=== PATIENT | female | born 1980 | race Caucasian/White ===

== ENCOUNTER → 2019-11-11 | Outpatient (CLI) | payer OTHER ==
[2019-11-11 12:51] VITALS: BP 126/56; PULSE 70; RESP 14; TEMP 98.1
--- NOTE | 2019-11-11 12:56 | P.PAINCN ---
History of Present Illness - Reason for Consult Consult date: 11/11/19 - History of Present Illness This is a 39 years old female with a chronic history of severe neck pain, started more than 6 years ago, she denies any initiating event, the pain is constant and increases with any activity, she reported that she had the interventional pain management procedures done in the past which helped her neck pain is significantly, but she was not able to continue with the treatment, because she lost her insurance, patient currently on Motrin 800 mg every 8 hours and baclofen 10 3 times a day when necessary, he continued to have severe neck pain with occasional numbness and tingling in the upper extremities, also patient complaining of on and off episode of headache, patient denies any motor or sensory deficit she denies any fever or night sweats she denies any change in the bowel movement or urination, 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 History of Any Multi-Drug Resistant Organisms: None Reported Past Surgical History: No Surgical Hx Reported Additional Past Surgical History / Comment(s): HAS HAD PRIOR INJECTIONS Past Anesthesia/Blood Transfusion Reactions: No Reported Reaction Past Psychological History: No Psychological Hx Reported Smoking Status: Never smoker Past Alcohol Use History: None Reported Past Drug Use History: None Reported - Past Family History Mother Family Medical History: Cancer Medications and Allergies Home Medications Medication Instructions Recorded Confirmed Type Baclofen [Lioresal] 10 mg PO TID 11/06/19 11/06/19 History Ibuprofen [Motrin] 800 mg PO Q8H PRN 11/06/19 11/06/19 History Allergies Allergy/AdvReac Type Severity Reaction Status Date / Time No Known Allergies Allergy Verified 11/06/19 15:32 Physical Exam Vitals: Vital Signs Temp Pulse Resp BP Pulse Ox 11/11/19 12:45 98.1 F 70 14 126/56 92 L Physical Examinations : -Constitutiona : Cooperative , not in acute distress . -HEENT : nech : supple , no Lymphadenopathy , normal thyroid size . : eyes : no ptosis , no icterus, no photophobia . : ENT : normal of hearing , normal oropharynx , no Thrush . - Respiratory : Chest clear to auscultations Bilaterally , no wheezing , no Rhonchi . - Cardiovascula : regular rate and rhythem , S1 , S2 , no S3 , no S4. - Gastrointestina : abdomen soft no tenderness , bowel sounds , no organomegally . - Genitourinary : Defferred . - neurologic : Cranial nerve II to XII intact , no focal neurological deffecit . -psychatric : alert , oriented X 3 , appropriate affect , intact judgment and insight . -Lymphatic : no Lymphadenopathy . - musculoskeltal : Cervical Spine motor stregnth in the deltoid and biceps, normal right side , normal Left side motor stregnth biceps and the wrist extensors normal right side ,normal left side . motor stregnth in the triceps muscle . normal Right side , normal Left side deep tendon reflexes normal at the biceps , normal at Brachioradialis , normal at triceps. cervical facet loading test= Positive Bilaterally Spurling test= positive bilaterally. Neck distraction test= positive bilaterally. Alecia sign= positive bilaterally. Lumber spine moter stegnth lower extremities ,thigh and legs 5/5 Right side , 5/5 Left side Results Comments: MRI of the cervical spine done in 2013= 45 cervical herniated disc Assessment and Plan Plan: Assessment and plan=1-cervical herniated disc disease. 2-cervical spondylosis with cervical facet arthropathy. Patient had MRI of the cervical spine done in 2013 we don't have any new diagnostic study, we will order a new MRI of the cervical spine Plan we will see the patient in the pain clinic in 2 weeks, patient could benefit from amitriptyline 10 mg daily at bedtime, to help her to go to sleep, and also it will be adjuvant help with the pain Time with Patient: Greater than 30 PQRS Measure Charge Sheet Measure #130: Documentation of Current Meds in Medical Chart: Patient's medications documented in chart Measure #226: Tobacco Use: Screen & Cessation Intervention: Pt not a tobacco user Measure #111: Pneumonia Vaccination: Pneumococcal vaccine NOT administered or previously given Measure #47: Advance Care Plan: Advance care planning discussed & documented, pt chose/unable to give Measure #412: Opioid Treatment Agreement: No documentation of signed opioid treatment agreement Measure #408: Opioid Therapy Follow-up Evaluation: Patient had NO f/u eval minimum every 3 months during opioid therapy Measure #317: Preventitive Care & Scrn High Bld Press & F/U: Normal blood pressure, f/u not required Measure #128: Body Mass Index (BMI) Screening & Follow-up: BMI documented ABOVE normal parameters - f/u documented Measure #131: Pain Assessment & Follow-up: Pain positive & plan documented, Follow-up scheduled Measure #431: Unhealthy Alcohol Use Preventative Care & Scrn: Patient not identified as an unhealthy alcohol user PQRS Narrative: Blood Pressure 126/56 Pain Intensity [Neck] 7 Scale Used Numeric (1 - 10) Hx Alcohol Use (MH) No Home Medications: Ambulatory Orders Baclofen [Lioresal] 10 mg PO TID 11/06/19 Ibuprofen [Motrin] 800 mg PO Q8H PRN 11/06/19
== END | disposition home or self-care (01) ==
LOC: PNWHC3 11:58
PROVIDERS: ATTEND Specialist
DX: M47.812 Spondylosis without myelopathy or radiculopathy, cervical region (principal); M46.92 Unspecified inflammatory spondylopathy, cervical region; M50.20 Other cervical disc displacement, unspecified cervical region; Z79.891 Long term (current) use of opiate analgesic; Z79.899 Other long term (current) drug therapy
CPT/HCPCS: 99211

== ENCOUNTER → 2020-06-10 | Outpatient (CLI) | payer OTHER ==
[2020-06-10 17:25] VITALS: BP 109/60; PULSE 65; RESP 16; TEMP 98.2; BMI 41.4
--- NOTE | 2020-06-10 17:41 | P.HPBAR ---
Bariatric H&P - History & Physicial H&P Date: 06/10/20 History & Physicial: Visit/CC: Initial Patient initial contact: Initial weight: 107.757 kg Initial weight in pounds: 237.56 Height: 5 ft 3.5 in Initial BMI: 41.4 Last weight: Current weight: 107.757 kg Current weight in pounds: 237.56 Current BMI: 41.4 [place] body weight (based on NIH guidelines): 53.297 kg Excess body weight loss: 0.0% The patient is a 40 year-old F who presents for Bariatric Assessment. DATE OF SERVICE: 06/10/2020 REASON FOR CONSULTATION: Initial bariatric evaluation. HISTORY OF PRESENT ILLNESS: Lizbeth Gill is a 40-year-old female who comes with lifelong morbid obesity. She is looking into the gastric bypass. She has a food and exercise journal. Highest weight is 260 pounds, BMI 45.4. She lost weight on Adipex of 20 pounds in 6 months. Her mother, sister, grandmother has obesity. Her grandmother had bariatric surgery. She has gastroesophageal reflux disease with pizza and red foods. She has food allergies with red dye. She has moderate constipation every week and has been like that as a child. She drinks coffee and clover makes her have a bowel movement. She denies deep venous thromboses in herself or family. No stomach or esophageal cancer. Her mother had uterine cancer. No reports of dysphagia. No current diabetes. She snores but denies any recent check for sleep apnea. She has osteoarthritis of the lower back pain, and has hip pain. She denies knee pain. She has feet and ankle pain for severe pain from arthritis. No Crohns disease or colitis. She denies taking medications for hypertension. She presents to me first time in consultation for management of morbid obesity. At height of 5 feet 3.5 inches, her ideal body weight is 140 pounds. Highest weight is 260 pounds, BMI 45.4. She comes in 237 pounds. Her body mass index is 41.4. She is 97 pounds overweight. PAST MEDICAL HISTORY: 1. Morbid obesity due to excess calories 2. Body mass index of 45.4 initial 3. Gastroesophageal reflux disease 4. Obstructive sleep apnea 5. Chronic constipation 6. 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 Spine injection HOME MEDICATIONS: Home Medications Medication Instructions Recorded Confirmed Baclofen [Lioresal] 10 mg PO TID 11/06/19 12/05/19 Ibuprofen [Motrin] 800 mg PO Q8H PRN 11/06/19 12/05/19 Amitriptyline HCl [Elavil] 10 mg PO HS 11/11/19 12/05/19 ALLERGIES: She has food allergies with red dye. SOCIAL HISTORY: Denies past tobacco use. FAMILY HISTORY: No family history of ulcerative colitis disease or Crohn's disease. Family history of morbid obesity. No lupus in the family. No reports of stomach or esophageal cancer. Her mother, sister, grandmother has obesity. Her grandmother had bariatric surgery. Her mother had uterine cancer. REVIEW OF ORGAN SYSTEMS: CONSTITUTIONAL: At height of 5 feet 3.5 inches, her ideal body weight is 140 pounds. Highest weight is 260 pounds, BMI 45.4. She comes in 237 pounds. Her body mass index is 41.4. She is 97 pounds overweight. HEENT: Denies any active troubles with vision or hearing. Denies troubles with swallowing. ENDOCRINE: Denies diabetes. No hypothyroidism. CARDIOVASCULAR: Denies past reports of palpitations or heart attacks or chest pain. Denies hypertensive heart disease. RESPIRATORY: Has daytime somnolence. GASTROINTESTINAL: Denies any bright red blood per rectum. No diarrhea. Has chronic constipation weekly bowel movements. Has gastroesophageal reflux disease. GENITOURINARY: Has bladder urgency. No recent blood in urine MUSCULOSKELETAL: Has lower back pain and joint pain. NEURO: No headaches. No seizure disorders. PSYCH: Denies depression. No suicidal ideation. RHEUMATOLOGIC: No lupus. No rheumatoid arthritis. HEMATOLOGIC: Denies any abnormal bleeding or bruising. SKIN: No rash. No skin cancer. PHYSICAL EXAM: VITAL SIGNS: Height 5 foot 3.5 inches, weight 237 pounds. BMI 41.4 Vital Signs Temp 98.2 F 06/10/20 17:18 Pulse 65 06/10/20 17:18 Resp 16 06/10/20 17:18 BP 109/60 06/10/20 17:18 Pulse Ox GENERAL: Well-developed in no acute distress. HEENT: No scleral icterus. Extraocular movements grossly intact. Hears conve rsational speech. No nasal drainage. NECK: Supple without lymphadenopathy. CHEST: Nonlabored respirations with equal bilateral excursions. CARDIOVASCULAR: Regular rate and regular rhythm. Distal 2+ pulses. ABDOMEN: Obese, soft, nontender, nondistended. MUSCULOSKELETAL: No clubbing, cyanosis. NEURO: No focal or lateralizing signs. Cranial nerves 2 through 12 grossly within normal limits. PSYCH: Appropriate affect. Alert and oriented to person, place and time. SKIN: Good skin turgor. Well perfused. ASSESSMENT: 1. Morbid obesity due to excess calories 2. Body mass index of 45.4 initial 3. Gastroesophageal reflux disease 4. Obstructive sleep apnea 5. Chronic constipation 6. 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 Family history morbid obesity PLAN: 1. Surgical options including a band, gastric bypass, sleeve gastrectomy were described in detail. Alternatives such as gastric balloon including duodenal switch were described. She is looking into the gastric bypass. 2. The [place] bariatric surgical collaborative data and outcomes calculator were described with surgical options. 3. Recommend a bariatric metabolic panel to evaluate for micro- including macronutrient deficiencies. 4. For history of daytime somnolence, recommend evaluation and treatment for sleep apnea. 5. Dietary surveillance and counseling was reviewed. Increased protein intake over 65 grams daily advised. 6. Will need cardiac risk assessment. 7. Recommend medical risk assessment. 8. Psych assessment per insurance guidelines. 9. Recommend upper endoscopy. 10. Recommend 12-lead EKG. 11. Recommend esophagram Thank you for this consultation. 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 History of Any Multi-Drug Resistant Organisms: None Reported Past Surgical History: No Surgical Hx Reported Additional Past Surgical History / Comment(s): HAS HAD PRIOR INJECTIONS Past Anesthesia/Blood Transfusion Reactions: No Reported Reaction Past Psychological History: No Psychological Hx Reported Smoking Status: Never smoker Past Alcohol Use History: None Reported Past Drug Use History: None Reported - Past Family History Mother Family Medical History: Cancer Surgical - Exam Vital Signs Temp Pulse Resp BP 98.2 F 65 16 109/60 06/10/20 17:18 06/10/20 17:18 06/10/20 17:18 06/10/20 17:18 Bariatric Checklist Checklist: Plan: Checklist: EGD: 1. Hiatal hernia: 2. H. Pylori: HgbA1c: Vitamin D: Smoking: Primary care physician referral: DR. FERNÁNDEZ Psychiatry clearance: Cardiology clearance: Sleep study: Diet journal: VTE risk score: VTE risk level: Rehab needs at discharge:
== END ==
LOC: BARWHC3 15:50
PROVIDERS: ATTEND Surgery Plastic and Reconstructive Surgery
DX: E66.01 Morbid (severe) obesity due to excess calories (principal); K21.9 Gastro-esophageal reflux disease without esophagitis; G47.33 Obstructive sleep apnea (adult) (pediatric); K59.09 Other constipation; M47.9 Spondylosis, unspecified; M16.0 Bilateral primary osteoarthritis of hip; M19.072 Primary osteoarthritis, left ankle and foot; M19.071 Primary osteoarthritis, right ankle and foot; Z83.49 Family history of other endocrine, nutritional and metabolic diseases; Z68.42 Body mass index [BMI] 45.0-49.9, adult
CPT/HCPCS: 99202

== ENCOUNTER → 2022-10-27 | Outpatient (CLI) | payer OTHER ==
--- NOTE | 2022-11-02 20:39 | MR ---
EXAMINATION TYPE: MR knee RT wo con DATE OF EXAM: 10/27/2022 COMPARISON: None HISTORY: Rt knee pain TECHNIQUE: Multiplanar, multisequence imaging of the right knee is performed without IV contrast. FINDINGS: There are no bone contusion or fractures. There is a small subchondral cysts in the lateral aspect of the medial tibial plateau and subchondral bone changes in the inferior aspect of the patella. There is mild to moderate osteoarthritic change of the patellofemoral compartment , medial and lateral compartments where there is moderate cartilagi nous thinning, mild joint space narrowing and hypertrophic spurring. There is abnormal linear signal in the articular cartilages of the medial compartment and in the inferior aspect of the patellofemora l compartment indicating chondromalacia. There is a tear of the posterior horn of the medial meniscus. The anterior horn of the medial meniscu s is macerated and diminutive. The lateral meniscus is intact. The cruciate and collateral ligaments are intact. There is a moderate joint effusion.. IMPRESSION: 1.Tricompartment osteoarthritic changes described above greatest in the medial compartment. 2. Tear of the posterior horn medial meniscus and diminutive and macerated anterior horn of the media l meniscus. 3. Cruciate and collateral ligaments are intact. 4. Moderate joint effusion.
== END | disposition home or self-care (01) ==
LOC: RADMRIMAIN 13:07
PROVIDERS: ATTEND Orthopaedic Surgery
DX: M17.11 Unilateral primary osteoarthritis, right knee (principal); M25.461 Effusion, right knee; M23.221 Derangement of posterior horn of medial meniscus due to old tear or injury, right knee; M23.311 Other meniscus derangements, anterior horn of medial meniscus, right knee

== ENCOUNTER 2023-05-30 03:44 | Emergency (ER) | payer BC, OTHER ==
[2023-05-30 04:50] LABS: Basophils % (A) 0 %; Eosinophils # (A) 0.4 k/uL (0-0.7); Eosinophils % (A) 4 %; HCT 38.1 % (34.0-46.0); HGB 12.5 gm/dL (11.4-16.0); Lymphocytes # (A) 1.6 k/uL (1.0-4.8); Lymphocytes % (A) 17 %; MCH 26.2 pg (25.0-35.0); MCHC 32.8 g/dL (31.0-37.0); Mean Platelet Volume 8.3; Monocytes # (A) 0.6 k/uL (0-1.0); Monocytes % (A) 6 %; Neutrophils # (A) 6.6 k/uL (1.3-7.7); Neutrophils % (A) 71 %; Platelet Count 223 k/uL (150-450); RBC 4.76 m/uL (3.80-5.40); WBC 9.3 k/uL (3.8-10.6)
[2023-05-30 04:50] LABS: Appearance,Urine Clear (Clear); Bilirubin,Urine Negative (Negative); Blood,Urine Negative (Negative); Color,Urine Colorless; Glucose,Urine (UA) Negative (Negative); Ketones,Urine Negative (Negative); Leukocyte Esterase,Urine Negative (Negative); Nitrite,Urine Negative (Negative); PH, Urine 5.5 (5.0-8.0); Protein,Urine Negative (Negative); Specific Gravity,Urine 1.009 (1.001-1.035); Urobilinogen,Urine <2.0 mg/dL (<2.0)
[2023-05-30 04:59] LABS: ALT 21 U/L (4-34); AST 20 U/L (14-36); African American GFR (CKD) >90 (>60 ml/min/1.73 sqM); Albumin 3.5 g/dL (3.5-5.0); Alkaline Phosphatase 83 U/L (38-126); Amylase 60 U/L (30-110); Anion Gap 5 mmol/L; Blood Urea Nitrogen 11 mg/dL (7-17); Calcium 9.4 mg/dL (8.4-10.2); Carbon Dioxide 23 mmol/L (22-30); Chloride 106 mmol/L (98-107); Glucose 98 mg/dL (74-99); Lipase 86 U/L (23-300); Non-African American GFR(CKD) >90 (>60 ml/min/1.73 sqM); Potassium 4.1 mmol/L (3.5-5.1); Sodium 134 mmol/L (137-145); Total Bilirubin 0.3 mg/dL (0.2-1.3); Total Protein 6.5 g/dL (6.3-8.2)
--- NOTE | 2023-05-30 05:21 | ED ---
Abdominal Pain HPI - General Source: patient Mode of arrival: ambulatory Limitations: no limitations - History of Present Illness MD Complaint: abdominal pain Onset/Timin -: days(s) Location: LLQ, RLQ, suprapubic Radiation: none Migration to: no migration Severity: moderate Quality: cramping, aching Consistency: intermittent Improves With: nothing Worsens With: nothing Associated Symptoms: other - Related Data LMP (females 10-50): <João Benítez - Last Filed: 05/30/23 05:16> <Chidi Tafoya - Last Filed: 05/30/23 08:55> - General Chief Complaint: Abdominal Pain Stated Complaint: 16 Weeks , belly pain Time Seen by Provider: 05/30/23 04:05 - History of Present Illness Initial Comments: Patient is 43-year-old woman who presents for evaluation of low abdominal pain. She states that it initially started low on the right side 3 days ago. She states that it is now all across the lower abdomen. She states the pain is somewhat intermittent. She notes that it gets worse if she is spending time on her feet. Tonight she also noticed a little bit of spotting. (João Benítez) - Related Data Home Medications Medication Instructions Recorded Confirmed Baclofen [Lioresal] 10 mg PO TID 11/06/19 12/05/19 Ibuprofen [Motrin] 800 mg PO Q8H PRN 11/06/19 12/05/19 Amitriptyline HCl [Elavil] 10 mg PO HS 11/11/19 12/05/19 Allergies Allergy/AdvReac Type Severity Reaction Status Date / Time No Known Allergies Allergy Verified 12/05/19 15:05 Review of Systems ROS Other: All systems not noted in ROS Statement are negative. Constitutional: Denies: fever, chills, weakness Respiratory: Denies: cough, dyspnea Cardiovascular: Denies: chest pain, palpitations, edema Gastrointestinal: Reports: abdominal pain. Denies: nausea, vomiting, diarrhea, melena, hematochezia Genitourinary: Reports: abnormal menses (Spotting). Denies: dysuria, frequency, hematuria Musculoskeletal: Denies: back pain Skin: Denies: rash Neurological: Denies: headache, weakness <João Benítez - Last Filed: 05/30/23 05:16> ROS Other: All systems not noted in ROS Statement are negative. <Chidi Tafoya Clotilde - Last Filed: 05/30/23 08:55> ROS Statement: Those systems with pertinent positive or pertinent negative responses have been documented in the HPI. 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, knee problems History of Any Multi-Drug Resistant Organisms: None Reported Past Surgical History: No Surgical Hx Reported, Appendectomy Additional Past Surgical History / Comment(s): HAS HAD PRIOR INJECTIONS Past Anesthesia/Blood Transfusion Reactions: No Reported Reaction Past Psychological History: No Psychological Hx Reported Smoking Status: Never smoker Past Alcohol Use History: None Reported Past Drug Use History: None Reported - Past Family History Mother Family Medical History: Cancer <João Benítez - Last Filed: 05/30/23 05:16> General Exam General appearance: alert, in no apparent distress Head exam: Present: atraumatic, normocephalic Eye exam: Present: normal appearance. Absent: scleral icterus, conjunctival injection ENT exam: Present: normal oropharynx Neck exam: Present: normal inspection Respiratory exam: Present: normal lung sounds bilaterally. Absent: respiratory distress, wheezes, rales, rhonchi, stridor Cardiovascular Exam: Present: regular rate, normal rhythm, normal heart sounds. Absent: systolic murmur, diastolic murmur, rubs, gallop GI/Abdominal exam: Present: soft. Absent: distended, tenderness, guarding, rebound, rigid, organomegaly Extremities exam: Present: normal inspection, normal capillary refill. Absent: pedal edema, calf tenderness Back exam: Present: normal inspection. Absent: CVA tenderness (R), CVA tenderness (L) Neurological exam: Present: alert Skin exam: Present: warm, dry, intact, normal color. Absent: rash <João Benítez - Last Filed: 05/30/23 05:16> Course Vital Signs 05/30/23 03:50 Temperature 98.0 F Pulse Rate 66 Respiratory 19 Rate Blood Pressure 103/51 O2 Sat by Pulse 100 Oximetry Medical Decision Making - Lab Data Result diagrams: 05/30/23 04:38 05/30/23 04:38 <João Benítez - Last Filed: 05/30/23 05:16> - Lab Data Result diagrams: 05/30/23 04:38 05/30/23 04:38 <Chidi Tafoya - Last Filed: 05/30/23 08:55> - Medical Decision Making Patient care signed out to me by previous shift physician, Dr. Brower. Briefly, patient is a 43-year-old female presents emergency department with abdominal pain and . Plan at signout was to follow-up with pending ultrasound imaging Ultrasound imaging was read by radiology found to be unremarkable. Patient reevaluated bedside at 8:50 AM finding still no condition. Patient told that she should follow-up with her community case manager. At this point no emergent processes identified. Patient agreeable with plan. (Chidi Tafoya) - Lab Data Lab Results 05/30/23 05/30/23 05/30/23 Range/Units 04:38 04:38 04:38 WBC 9.3 (3.8-10.6) k/uL RBC 4.76 (3.80-5.40) m/uL Hgb 12.5 (11.4-16.0) gm/dL Hct 38.1 (34.0-46.0) % MCV 80.0 (80.0-100.0) fL MCH 26.2 (25.0-35.0) pg MCHC 32.8 (31.0-37.0) g/dL RDW 14.0 (11.5-15.5) % Plt Count 223 (150-450) k/uL MPV 8.3 Neutrophils % 71 % Lymphocytes % 17 % Monocytes % 6 % Eosinophils % 4 % Basophils % 0 % Neutrophils # 6.6 (1.3-7.7) k/uL Lymphocytes # 1.6 (1.0-4.8) k/uL Monocytes # 0.6 (0-1.0) k/uL Eosinophils # 0.4 (0-0.7) k/uL Basophils # 0.0 (0-0.2) k/uL Sodium 134 L (137-145) mmol/L Potassium 4.1 (3.5-5.1) mmol/L Chloride 106 (98-107) mmol/L Carbon Dioxide 23 (22-30) mmol/L Anion Gap 5 mmol/L BUN 11 (7-17) mg/dL Creatinine 0.56 (0.52-1.04) mg/dL Est GFR (CKD-EPI)AfAm >90 (>60 ml/min/1.73 sqM) Est GFR (CKD-EPI)NonAf >90 (>60 ml/min/1.73 sqM) Glucose 98 (74-99) mg/dL Plasma Lactic Acid Harshad 0.6 L (0.7-2.0) mmol/L Calcium 9.4 (8.4-10.2) mg/dL Total Bilirubin 0.3 (0.2-1.3) mg/dL AST 20 (14-36) U/L ALT 21 (4-34) U/L Alkaline Phosphatase 83 (38-126) U/L Total Protein 6.5 (6.3-8.2) g/dL Albumin 3.5 (3.5-5.0) g/dL Amylase 60 (30-110) U/L Lipase 86 (23-300) U/L HCG, Quant mIU/mL Urine Color Urine Appearance (Clear) Urine pH (5.0-8.0) Ur Specific [place] (1.001-1.035) Urine Protein (Negative) Urine Glucose (UA) (Negative) Urine Ketones (Negative) Urine Blood (Negative) Urine Nitrite (Negative) Urine Bilirubin (Negative) Urine Urobilinogen (<2.0) mg/dL Ur Leukocyte Esterase (Negative) 05/30/23 05/30/23 Range/Units 04:38 04:41 WBC (3.8-10.6) k/uL RBC (3.80-5.40) m/uL Hgb (11.4-16.0) gm/dL Hct (34.0-46.0) % MCV (80.0-100.0) fL MCH (25.0-35.0) pg MCHC (31.0-37.0) g/dL RDW (11.5-15.5) % Plt Count (150-450) k/uL MPV Neutrophils % % Lymphocytes % % Monocytes % % Eosinophils % % Basophils % % Neutrophils # (1.3-7.7) k/uL Lymphocytes # (1.0-4.8) k/uL Monocytes # (0-1.0) k/uL Eosinophils # (0-0.7) k/uL Basophils # (0-0.2) k/uL Sodium (137-145) mmol/L Potassium (3.5-5.1) mmol/L Chloride (98-107) mmol/L Carbon Dioxide (22-30) mmol/L Anion Gap mmol/L BUN (7-17) mg/dL Creatinine (0.52-1.04) mg/dL Est GFR (CKD-EPI)AfAm (>60 ml/min/1.73 sqM) Est GFR (CKD-EPI)NonAf (>60 ml/min/1.73 sqM) Glucose (74-99) mg/dL Plasma Lactic Acid Harshad (0.7-2.0) mmol/L Calcium (8.4-10.2) mg/dL Total Bilirubin (0.2-1.3) mg/dL AST (14-36) U/L ALT (4-34) U/L Alkaline Phosphatase (38-126) U/L Total Protein (6.3-8.2) g/dL Albumin (3.5-5.0) g/dL Amylase (30-110) U/L Lipase (23-300) U/L HCG, Quant 74252.1 mIU/mL Urine Color Colorless Urine Appearance Clear (Clear) Urine pH 5.5 (5.0-8.0) Ur Specific [place] 1.009 (1.001-1.035) Urine Protein Negative (Negative) Urine Glucose (UA) Negative (Negative) Urine Ketones Negative (Negative) Urine Blood Negative (Negative) Urine Nitrite Negative (Negative) Urine Bilirubin Negative (Negative) Urine Urobilinogen <2.0 (<2.0) mg/dL Ur Leukocyte Esterase Negative (Negative) Disposition <João Benítez - Last Filed: 05/30/23 05:16> Is patient prescribed a controlled substance at d/c from ED?: No Time of Disposition: 08:55 <Chidi Tafoya - Last Filed: 05/30/23 08:55> Clinical Impression: Pelvic pain affecting Disposition: HOME SELF-CARE Condition: Good Instructions (If sedation given, give patient instructions): Pelvic Pain in Women (ED) Referrals: Erich Miranda MD [STAFF PHYSICIAN] - 1-2 days
--- NOTE | 2023-05-30 08:20 | US ---
EXAMINATION TYPE: US OB >= 14 wk fetus DATE OF EXAM: 05/30/2023 COMPARISON: None CLINICAL INDICATION: Female, 43 years old with history of pelvic pain, 16 wk ; Pt states low er ABD pain x 3 days TECHNIQUE: Transabdominal (TA) GESTATIONAL AGE / DATING Physician Established: (16 weeks/0 days) EDC: 11/14/2023 Dates by LMP: (16 weeks/0 days) EDC: 11/14/2023 Dates by First Scan: No previous this is first scan Dates by Current Scan: (15 weeks/6 days) EDC: 11/15/2023 SURVEY IUP: Single PLACENTA: Posterior PREVIA: No Previa JOSE JUAN: 10.4 cm Normal CERVICAL LENGTH (transabdominal: norm > 3.0cm): 3.9 cm BIOMETRY PRESENTATION: Breech BPD: 3.2 cm 16 weeks / 0 days HC: 12.2 cm 16 weeks / 0 days AC: 9.3 cm 15 weeks / 3 days FL: 1.7 cm 15 weeks / 1 days ESTIMATED WEIGHT IN GRAMS: 122.7 grams ESTIMATED WEIGHT IN LBS/OZ: 0 lbs. 4 oz. WEIGHT PERCENTAGE BASED ON ESTABLISHED DATES: 10.5% HC/AC: 1.31 Normal FL/AC: 19 Normal HEART RATE: 146 bpm RHYTHM: Normal IMPRESSION: Single live intrauterine gestation ultrasound age 15 weeks 6 days.
[2023-05-30 09:36] VITALS: BP 107/81; PULSE 67; RESP 18; TEMP 98
== END 2023-05-30 09:02 | disposition home or self-care (01) ==
LOC: EC 03:44
DX: O26.892 Other specified pregnancy related conditions, second trimester (principal); R10.2 Pelvic and perineal pain; Z3A.15 15 weeks gestation of pregnancy
CPT/HCPCS: 36415; 76805; 80053; 81003; 82150; 83605; 83690; 84702; 85025; 99284

== ENCOUNTER 2023-10-04 16:48 | Outpatient (CLI) | payer BC ==
[2023-10-04 17:43] VITALS: BP 137/77; PULSE 56; RESP 17; TEMP 97.6
--- NOTE | 2023-12-05 20:24 | P.MSEPDOC ---
Presenting Problems - Arrival Data Date of Arrival on Unit: 10/04/23 Time of Arrival on Unit: 16:48 Mode of Transport: Ambulatory - Complaint OB-Reason for Admission/Chief Complaint: Decreased Movement, Other Comment: Pt c/o of decreased movement and "clump feeling in lower abdomen". Medical History - Information : 2 Para: 0 Term: 0 : 0 Abortions: Spontaneous or Elective: 1 Number of Living Children: 0 - Gestational Age Gestational Age by AMEE (wks/days): 34 Weeks and 1 Days Review of Systems - Review of Systems Constitutional: No problems Breast: No problems ENT: No problems Cardiovascular: No problems Respiratory: No problems Gastrointestinal: No problems Genitourinary: No problems Musculoskeletal: No problems Neurological: No problems Skin: No problems Vital Signs - Temperature Temperature: 97.6 F Temperature Source: Temporal Artery Scan - Pulse Right Brachial Pulse Rate: 56 Pulse Assessment Method: Automatic Cuff - Respirations Respiratory Rate: 17 Oxygen Delivery Method: Room Air O2 Sat by Pulse Oximetry: 98 - Blood Pressure Right Arm Blood Pressure: 137/77 Blood Pressure Mean: 97 Blood Pressure Source: Automatic Cuff Medical Screen Scoring - Assessment - Baby A Baseline FHR: 130 Heart Rate - NICHD Category: Category I (Normal) NST: Reactive Physician Notification - Physician Notified Physician Notified Date: 10/04/23 Physician Notified Time: 17:27 Physician: Patricia Neal New Order Received: Yes - Notification Comment Comment: Dr. Neal called and given report on pt. Pt c/o. VS readback to Dr. Sanchez NST. No contractions noted per monitor. Abdomen assessed by RN, no concerns noted. movement noted audibly and per pt. Orders recieved to d/c pt to home. Maternal Triage Index - Urgent/Priority 2 Urgent Priority 2: Yes Provider Notified: Patricia Neal Provider Notified Time: 17:27 Criteria Met for Priority 2: Pt c/o of decreased movement and "clump like feeling in lower abdomen". Disposition - Disposition OB Disposition: Discharge to home Discharge Date: 10/04/23 Discharge Time: 17:37 I agree with the RN Medical Screening Exam: Yes Physician's MSE Comment: I have neither seen nor examined the patient Case reviewed; plan agreed upon as documented in EMR&OBIX.: Yes Diagnosis: DECREASED MOVEMENTS, THIRD TRIMESTER, FETUS 1
== END 2023-10-04 17:37 | disposition home or self-care (01) ==
LOC: FBPOP 16:48
PROVIDERS: ATTEND Obstetrics & Gynecology
DX: O36.8131 Decreased fetal movements, third trimester, fetus 1 (principal); Z3A.34 34 weeks gestation of pregnancy
CPT/HCPCS: 59025; 99213

== ENCOUNTER → 2023-10-19 | Outpatient (CLI) | payer BC, OTHER | END | disposition home or self-care (01) | LOC: LABPRL 10:45 | PROVIDERS: ATTEND Obstetrics & Gynecology | DX: Z36.85 Encounter for antenatal screening for Streptococcus B (principal) | CPT/HCPCS: 87081 ==

== ENCOUNTER 2023-11-07 06:00 | Inpatient (IN) | payer BC, OTHER ==
[2023-11-07] MEDS ORDERED: TRANEXAMIC 1,000 MG/100ML-NACL 1,000 MG in EMPTY BAG 1 BAG IV PRN (10:14)
[2023-11-07] MEDS ORDERED: miSOPROStoL 200 MCG TAB PO PRN (10:14)
[2023-11-07] MEDS ORDERED: OXYTOCIN 10 UNIT/ML 1 ML VIAL IM PRN (10:14)
[2023-11-07] MEDS ORDERED: CARBOPROST TROMETHAMINE 250 MCG/ML 1 ML AMP IM PRN (10:14)
[2023-11-07] MEDS ORDERED: METHYLERGONOVINE 0.2 MG/ML 1 ML AMP IM PRN (10:14)
[2023-11-07 10:27] LABS: Glucose,Whole Blood 78 mg/dL (70-110)
[2023-11-07 10:32] LABS: Basophils % (A) 0 %; Eosinophils # (A) 0.3 k/uL (0-0.7); Eosinophils % (A) 4 %; HCT 32.7 % (34.0-46.0); HGB 10.8 gm/dL (11.4-16.0); Lymphocytes # (A) 1.6 k/uL (1.0-4.8); Lymphocytes % (A) 21 %; MCH 28.2 pg (25.0-35.0); MCHC 33.2 g/dL (31.0-37.0); Mean Platelet Volume 11.6; Monocytes # (A) 0.5 k/uL (0-1.0); Monocytes % (A) 6 %; Neutrophils # (A) 4.9 k/uL (1.3-7.7); Neutrophils % (A) 66 %; Platelet Count 174 k/uL (150-450); RBC 3.84 m/uL (3.80-5.40); RDW 14.2 % (11.5-15.5); WBC 7.4 k/uL (3.8-10.6)
[2023-11-07 11:33] LABS: Appearance,Urine Clear (Clear); Bilirubin,Urine Negative (Negative); Blood,Urine Negative (Negative); Color,Urine Yellow; Glucose,Urine (UA) Negative (Negative); Ketones,Urine Negative (Negative); Leukocyte Esterase,Urine Negative (Negative); Nitrite,Urine Negative (Negative); PH, Urine 6.5 (5.0-8.0); Protein,Urine Trace (Negative); Specific Gravity,Urine 1.026 (1.001-1.035); Urobilinogen,Urine <2.0 mg/dL (<2.0)
[2023-11-07 11:38] LABS: Creatinine,Urine Random 217.8 mg/dL; Protein/Creatinine Ratio,Urine 0.055
[2023-11-07 11:43] LABS: ALT 17 U/L (4-34); AST 25 U/L (14-36); African American GFR (CKD) >90 (>60 ml/min/1.73 sqM); Blood Urea Nitrogen 16 mg/dL (7-17); LDH 256 U/L (120-246); Non-African American GFR(CKD) 78 (>60 ml/min/1.73 sqM); Uric Acid 7.1 mg/dL (3.7-7.4)
[2023-11-07] MEDS: ceFAZolin 3 GM in SODIUM CHLORIDE 0.9% 100 ML IVPB ONE (11:48)
[2023-11-07] MEDS: CITRIC ACID-SODIUM CITRATE 15 ML CUP PO ONE (11:48)
[2023-11-07] MEDS ORDERED: ONDANSETRON 4 MG/2 ML VIAL ONE (12:01)
[2023-11-07] MEDS ORDERED: OXYTOCIN 30 UNITS/500 ML NS BAG IV ONE (12:01)
[2023-11-07] MEDS ORDERED: fentaNYL (PF) 50 MCG/ML 2 ML AMP ONE (12:01)
[2023-11-07] MEDS ORDERED: KETOROLAC 15 MG/ML 1 ML VIAL ONE (12:01)
[2023-11-07] MEDS ORDERED: NALBUPHINE 10 MG/ML (10 ML MDV) ONE (12:01)
[2023-11-07] MEDS ORDERED: MORPHINE SULFATE (PF) 0.3 MG/0.3 ML SYR ONE (12:01)
[2023-11-07] MEDS ORDERED: ZOLPIDEM 5 MG TAB PO PRN (13:10)
[2023-11-07] MEDS ORDERED: diphenhydrAMINE 25 MG CAP PO PRN (13:10)
[2023-11-07] MEDS ORDERED: LANOLIN CREAM 1 GM TUBE TOPICAL PRN (13:10)
[2023-11-07] MEDS ORDERED: ONDANSETRON 4 MG/2 ML VIAL IVP PRN (13:10)
[2023-11-07] MEDS ORDERED: diphenhydrAMINE 50 MG CAP PO PRN (13:10)
[2023-11-07] MEDS ORDERED: NALOXONE 0.4 MG/ML 1 ML VIAL IV PRN (13:10)
[2023-11-07] MEDS ORDERED: diphenhydrAMINE 50 MG/ML 1 ML VIAL IVP PRN ×2 (13:10)
[2023-11-07] MEDS ORDERED: SIMETHICONE 80 MG CHEWABLE PO PRN (13:10)
[2023-11-07] MEDS ORDERED: OXYTOCIN 30 UNITS/500 ML NS 30 UNIT in SALINE 1 500ML.BAG IV SCH (13:15)
--- NOTE | 2023-11-07 13:17 | P.HPOB ---
History of Present Illness H&P Date: 11/07/23 Chief Complaint: 39-0/7 weeks, unstable lie, polyhydramnios, undesired fertility The patient is a 43-year-old 2 para 0-0-1-0 admitted at 39-0/7 weeks as established by an 8-week ultrasound. She is admitted for primary low-transverse section secondary to a fetus with a significantly unstable lie as well as polyhydramnios and. Her was also complicated by gestational diabetes which was well-controlled with diet alone. She did fall into the alissa gory of advanced maternal age and had normal trisomy testing. Given her gestational diabetes and polyhydramnios, she had reassuring testing on a weekly basis starting at 32 weeks. On successive visits, the fetus was found to be transverse at 1 visit, breech at the next visit and today was found to be vertex with the head floating high in the pelvis. Given her desire for bilateral salpingectomy and unfavorable cervix as well as the unstable lie, decision was made to proceed with primary low-transverse sections which the patient agreed with intraoperative bilateral salpingectomy. On labor delivery, all signs are reassuring with a category 1 heart rate tracing. Obstetrical history: 2 para 0-0-1-0 with 1 early loss. Current statistics are listed in the history of present illness. EDC of 11/14/2023 was established by an 8-week ultrasound. Laboratory workup demonstrates a blood type of B+ with a negative antibody screen. Rubella status is immune. The remainder of the laboratory workup was within normal limits. Ea rly Glucola was elevated and was followed by an abnormal 3-hour glucose tolerance test making the diagnosis of probable gestational diabetes but possibly pregestational diabetes as well. As noted in history of present illness, trisomy testing with fraction testing was negative. Gynecologic history: Unremarkable with no history of any infections to include STDs. Review of Systems Review of systems is confined to history of present illness. 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, knee problems History of Any Multi-Drug Resistant Organisms: None Reported Past Surgical History: No Surgical Hx Reported, Appendectomy Additional Past Surgical History / Comment(s): HAS HAD PRIOR INJECTIONS Past Anesthesia/Blood Transfusion Reactions: No Reported Reaction Past Psychological History: No Psychological Hx Reported Smoking Status: Never smoker Past Alcohol Use History: None Reported Past Drug Use History: None Reported - Past Family History Mother Family Medical History: Cancer Medications and Allergies Home Medications Medication Instructions Recorded Confirmed Type Aspirin 81 mg PO DAILY 10/04/23 11/07/23 History Magnesium 1 tab PO DAILY 10/04/23 11/07/23 History Vit No.179/Iron/Folic 1 tab PO DAILY 10/04/23 11/07/23 History [ Tablet] Allergies Allergy/AdvReac Type Severity Reaction Status Date / Time No Known Allergies Allergy Verified 11/07/23 10:17 Exam Vital Signs Temp Pulse Resp BP 11/07/23 10:29 98.2 F 56 L 16 170/60 Intake and Output 11/06/23 11/07/23 11/07/23 22:59 06:59 14:59 Other: Weight 121.563 kg In general, this is a moderately obese white female in no acute distress. Her heart has a regular rhythm and rate without murmur. Her lungs clear to auscultation bilaterally in all gold. Her abdomen is obese, gravid, nondistended, has normal active bowel sounds, soft, nontender, and without any palpable masses aside from the uterine fundus. Her extremities without any cyanosis, clubbing, or significant edema and are nontender to palpation bilaterally. Digital cervical examination is deferred. Results Result Diagrams: 11/07/23 10:20 11/07/23 10:57 Abnormal Lab Results - Last 24 Hours (Table) 11/07/23 11/07/23 11/07/23 Range/Units 10:20 10:57 11:05 Hgb 10.8 L (11.4-16.0) gm/dL Hct 32.7 L (34.0-46.0) % Lactate Dehydrogenase 256 H (120-246) U/L Urine Protein Trace H (Negative) Assessment and Plan (1) Family planning Current Visit: Yes Status: Acute Code(s): Z30.09 - ENCOUNTER FOR OTH GENERAL CNSL AND ADVICE ON CONTRACEPTION SNOMED Code(s): 032492565 (2) Unstable lie Current Visit: Yes Status: Acute Code(s): O32.0XX0 - MATERNAL CARE FOR UNSTABLE LIE, NOT APPLICABLE OR UNSP SNOMED Code(s): 77285190 (3) Polyhydramnios Current Visit: Yes Status: Acute Code(s): O40.9XX0 - POLYHYDRAMNIOS, UNSP TRIMESTER, NOT APPLICABLE OR UNSP SNOMED Code(s): 41994838 (4) Gestational diabetes Current Visit: Yes Status: Acute Code(s): O24.419 - GESTATIONAL DIABETES MISA LITUS IN , UNSP CONTROL SNOMED Code(s): 53471258 (5) Term Current Visit: Yes Status: Acute Code(s): Z34.90 - ENCNTR FOR SUPRVSN OF NORMAL , UNSP, UNSP TRIMESTER SNOMED Code(s): 23653092 Plan: After extensive counseling in the office, the patient has agreed to undergo primary low-transverse section with intraoperative bilateral salpingectomy understanding that there is some potential protective benefit against developing ovarian cancer later in life. She understands the permanent nature of the procedure.
--- NOTE | 2023-11-07 13:26 | P.OP ---
Date of Procedure: 11/07/23 Preoperative Diagnosis: #1. 39-0/7 weeks, unstable lie #2. Polyhydramnios #3. Gestational diabetes #4. Undesired fertility #5. Advanced maternal age Postoperative Diagnosis: Same Procedure(s) Performed: #1. Primary low-transverse section #2. Intraoperative bilateral salpingectomy Anesthesia: spinal Surgeon: Erich Miranda Telegraphic Service Dispatcher #1: Lupe Baeza Estimated Blood Loss (ml): 935 IV fluids (ml): 1,000 Urine output (ml): 100 Pathology: other (Bilateral fallopian tubes) Condition: stable Disposition: floor Operative Findings: Preoperatively, the patient had been counseled regarding options. As the fetus was previously transverse and breech and had not been vertex on multiple occasions, the plan was made for section. She had additionally expressed the interest in having bilateral salpingectomy for permanent sterilization. She was taken to the operating room where she was delivered of a viable 6 pound 11 ounce girl with Apgars of 9 at 1 minute and 9 at 5 minutes del ivered in the vertex presentation. There was a significant amount of fluid, over 2 L drained prior to delivery of the infant. The placenta was delivered manually, intact, grossly normal with a grossly normal three-vessel cord. The uterus, tubes, and ovaries were entirely normal to inspection. The bilateral fallopian tubes were removed from their fimbriated end to the cornual insertion using the LigaSure device and sent for pathological diagnoses in a single specimen cup. Description of Procedure: The patient was prepped and draped in usual fashion after spinal anesthesia was administered by the anesthesiologist. A pannus retractor Was utilized to elevate the pannus prior to prepping and draping. A Pfannenstiel incision was made and extended into the abdominal cavity without difficulty. The bladder peritoneum was significantly distal to the intended site of incision and was left intact. A 2 cm incision was made in the transverse plane of the lower uterine segment to enter the uterus at which time a significant amount of clear fluid was noted. The incision was extended in both directions using the bandages scissors. To our surprise, the vertex was discovered floating just above the field and was delivered through the incision where the nose and mouth were thoroughly suction. The remainder of the was delivered onto the field where the cord was doubly clamped, cut, and the passed resuscitative measures with weight and Apgars as noted above. A segment of cord was clamped, cut, and set aside should cord gases become necessary. The placenta was delivered manually and intact as noted above. The uterus was exteriorized and the anterior cavity of the uterus swept of any remaining placental or membranous fragments. The margins of the uterine incision were grasped with Goff clamps and the incision closed in 2 layers. The first layer was a running locking stitch of 0 chromic catgut followed by a running imbricating stitch of 0 chromic catgut, each for margin to margin. Hemostasis appeared to be excellent. The posterior cul-de-sac was suctioned with a guard followed by laparotomy sponge. After reaffirming that the patient requested and agreed to a bilateral salpingectomy. The LigaSure device was utilized to remove each fallopian tube from the fimbriated end to its cornual insertion. The 2 tubes were included in 1 specimen cup and sent to pathology for diagnoses. Hemostasis appeared to be excellent. The uterus was replaced within the abdominal cavity and the incision reexamined and found to be hemostatic. The gutters were swept of any remaining blood, fluid, or clot. The layer of muscles was examined and made hemostatic with the Bovie. The fascia was closed with 2 stitches of 0 Vicryl proceeding from the lateral margins to the midpoint. The subcutaneous tissues were irrigated, made hemostatic with the Bovie, and then closed with a running stitch of 3-0 plain catgut. There was a moderate amount of bleeding in the subcutaneous layer. The skin was reapproximated with a running subcuticular stitch of 4-0 Vicryl followed by half-inch Steri-Strips placed with Mastisol. Quantitative blood loss for the case was 935 mL. There were no complications. All sponge, instrument, needle counts were correct. Both mother and infant are resting comfortably in recovery. The patient tolerated the procedure well and proceeded to the recovery room in stable condition.
[2023-11-07 15:12] LABS: INR 0.9 (<1.2); Partial Thromboplastin Time 23.9 sec (22.0-30.0); Prothrombin Time 9.9 sec (10.0-12.5)
[2023-11-07] MEDS: LACTATED RINGERS 1,000 ML IV SCH (16:41)
[2023-11-07] MEDS: METOCLOPRAMIDE 5 MG/ML 2 ML VIAL IVP PRN (18:37)
[2023-11-07] MEDS: KETOROLAC 15 MG/ML 1 ML VIAL IVP PRN (18:39)
[2023-11-07] MEDS: ACETAMINOPHEN TAB 500 MG TAB PO SCH (18:42)
[2023-11-07] MEDS: SENNOSIDES-DOCUSATE SODIUM 1 EACH TAB PO SCH (21:06)
[2023-11-07] MEDS: IBUPROFEN 600 MG TAB PO SCH (21:07)
--- NOTE | 2023-11-08 06:55 | P.PN ---
Progress Note - Text Progress Note Date: 11/08/23 Postoperative day 1 status post section under spinal anesthesia, and intrathecal morphine given for postoperative analgesia, patient doing well, there is no anesthesia related complications, Patient had no headache, vital signs stable , Assessment and plan= postop day 1 status post , doing well there is no anesthesia related complication.
[2023-11-08 07:35] LABS: Basophils % (A) 0 %; Eosinophils # (A) 0.3 k/uL (0-0.7); Eosinophils % (A) 4 %; HCT 28.4 % (34.0-46.0); HGB 9.5 gm/dL (11.4-16.0); Lymphocytes # (A) 1.2 k/uL (1.0-4.8); Lymphocytes % (A) 14 %; MCH 29.1 pg (25.0-35.0); MCHC 33.4 g/dL (31.0-37.0); MCV 87.2 fL (80.0-100.0); Mean Platelet Volume 12.3; Monocytes # (A) 0.5 k/uL (0-1.0); Monocytes % (A) 6 %; Neutrophils # (A) 6.6 k/uL (1.3-7.7); Neutrophils % (A) 75 %; Platelet Count 138 k/uL (150-450); RBC 3.26 m/uL (3.80-5.40); RDW 14.6 % (11.5-15.5); WBC 8.8 k/uL (3.8-10.6)
[2023-11-08 08:16] LABS: Large Platelets Present; RBC Morphology Normal
--- NOTE | 2023-11-08 08:40 | P.PNOBGPC ---
Subjective - Subjective Patient reports: Reports appetite normal, Reports voiding normally, Reports pain well controlled, Reports ambulating normally : doing well Objective - Vital Signs Latest vital signs: Vital Signs Temp Pulse Resp BP Pulse Ox 11/08/23 04:00 97.5 F L 57 L 16 135/82 11/08/23 00:00 98.0 F 69 16 131/77 11/07/23 20:00 97.6 F 56 L 16 128/79 98 11/07/23 15:05 48 L 16 136/63 98 11/07/23 14:50 47 L 16 98 11/07/23 14:35 49 L 14 100 11/07/23 14:20 98.4 F 49 L 16 131/66 100 11/07/23 14:05 45 L 16 134/61 98 11/07/23 13:50 47 L 16 147/67 11/07/23 13:35 49 L 14 99 11/07/23 13:20 50 L 16 121/60 98 11/07/23 13:05 97.0 F L 55 L 14 123/69 98 11/07/23 10:29 98.2 F 56 L 16 170/60 Intake and Output 11/07/23 11/08/23 11/08/23 22:59 06:59 14:59 Output Total 1335 100 Balance -1335 -100 Output: Urine 300 100 Uretheral (B[place]) 150 Output, Quantitative 1035 Blood Loss - Exam Extremities: Present: normal Abdomen: Present: normal appearance, soft. Absent: distention, tenderness Incision: Present: normal, dry, intact Uterus: Present: normal, firm (The uterine fundus is tonic and minimally tender below the umbilicus.) - Labs Labs: Abnormal Lab Results - Last 24 Hours (Table) 11/07/23 11/07/23 11/07/23 Range/Units 10:20 10:57 11:05 RBC (3.80-5.40) m/uL Hgb 10.8 L (11.4-16.0) gm/dL Hct 32.7 L (34.0-46.0) % Plt Count (150-450) k/uL PT (10.0-12.5) sec Lactate Dehydrogenase 256 H (120-246) U/L Urine Protein Trace H (Negative) 11/07/23 11/08/23 Range/Units 14:37 06:56 RBC 3.26 L (3.80-5.40) m/uL Hgb 9.5 L (11.4-16.0) gm/dL Hct 28.4 L (34.0-46.0) % Plt Count 138 L (150-450) k/uL PT 9.9 L (10.0-12.5) sec Lactate Dehydrogenase (120-246) U/L Urine Protein (Negative) Assessment and Plan (1) Family planning Current Visit: Yes Status: Acute Code(s): Z30.09 - ENCOUNTER FOR [facility] GENERAL CNSL AND ADVICE ON CONTRACEPTION SNOMED Code(s): 923452987 (2) Unstable lie Current Visit: Yes Status: Acute Code(s): O32.0XX0 - MATERNAL CARE FOR UNSTABLE LIE, NOT APPLICABLE OR UNSP SNOMED Code(s): 06720533 (3) Polyhydramnios Current Visit: Yes Status: Acute Code(s): O40.9XX0 - POLYHYDRAMNIOS, UNSP TRIMESTER, NOT APPLICABLE OR UNSP SNOMED Code(s): 18302368 (4) Gestational diabetes Current Visit: Yes Status: Acute Code(s): O24.419 - GESTATIONAL DIABETES MELLITUS IN , UNSP CONTROL SNOMED Code(s): 77734285 (5) Term Current Visit: Yes Status: Acute Code(s): Z34.90 - ENCNTR FOR SUPRVSN OF NORMAL , UNSP, UNSP TRIMESTER SNOMED Code(s): 70255137 (6) S/P section Current Visit: Yes Status: Acute Code(s): Z98.891 - HISTORY OF UTERINE SCAR FROM PREVIOUS SURGERY SNOMED Code(s): 745241598 Plan: Continue routine care. I have encouraged the patient to ambulate in the hallways routinely. Anticipate possible discharge home tomorrow pending no complications.
[2023-11-09 08:52] VITALS: BP 124/75; PULSE 75; RESP 16; TEMP 98.5
--- NOTE | 2023-11-09 09:29 | P.DS ---
Providers Date of admission: 11/07/23 10:00 Expected date of discharge: 11/09/23 Attending physician: Erich Miranda Primary care physician: Stated None - Discharge Diagnosis(es) (1) Family planning Current Visit: Yes Status: Acute (2) Unstable lie Current Visit: Yes Status: Acute (3) Polyhydramnios Current Visit: Yes Status: Acute (4) Gestational diabetes Current Visit: Yes Status: Acute (5) Term Current Visit: Yes Status: Acute (6) S/P section Current Visit: Yes Status: Acute Hospital Course: The patient is a 43-year-old 2 para 0-0-1-0 admitted at 39-0/7 weeks by good dating parameters. She was admitted for primary low-transverse section secondary to a fetus that had been transverse and breech for the entirety of the with a relatively unstable lie as well as a diagnosis of polyhydramnios. She also fell into the category of advanced maternal age and did have normal trisomy testing. She additionally developed gestational diabetes along with a polyhydramnios and did have reassuring testing on a weekly basis after 32 weeks. She was taken to the operating room where she was delivered of a viable 6 pound 11 ounce baby girl with Apgars of 9 at 1 minute and 9 at 5 minutes found in the vertex presentation at delivery. Her and postoperative courses have been unremarkable with vital signs remaining stable and her temperature was afebrile throughout. She was deemed stable for discharge on postoperative and day #2 and was discharged home to follow-up in the office in 2 weeks for an incision check in 6 weeks routinely. Discharge instructions included calling for any significantly increased bleeding or foul-smelling lochia, significantly increased fever or abdominal pain, perineal complaints, breast complaints, incisional complaints, or anything else that concerned her. She is additionally instructed to have nothing in the vagina for at least 6 weeks time to include intercourse. She additionally was instructed to do no heavy lifting over the same period of time and to abstain from driving until off of all pain medications or 2 weeks time, whichever came first. She understood her instru ctions and agrees to follow-up as noted above. Discharge medications included continued vitamins as she has opted to breast-feed. She is additionally to use [id number] analgesic pain medications. She was provided with a prescription for oxycodone 5 mg, 1-2 p.o. every 6 hours as needed pain, #20 dispensed with no refills. Maternal blood type is A- and rubella status is immune. cord blood was sent for evaluation for the necessity of RhoGAM prior to discharge. Discharge hemoglobin and hematocrit were 9.5 and 28.4 respectively. Procedures: #1. Primary low-transverse section Patient Condition at Discharge: Stable Plan - Discharge Summary New Discharge Prescriptions: No Action Vit No.179/Iron/Folic [ Tablet] 1 tab PO DAILY Magnesium 1 tab PO DAILY Aspirin 81 mg PO DAILY Discharge Medication List Aspirin 81 mg PO DAILY 10/04/23 [History] Magnesium 1 tab PO DAILY 10/04/23 [History] Vit No.179/Iron/Folic [ Tablet] 1 tab PO DAILY 10/04/23 [History] Follow up Appointment(s)/Referral(s): Erich Miranda MD [STAFF PHYSICIAN] - 12/19/23 2:15 pm (Post C/S Appointment 11-21-2023 at 03:45pm) Discharge Disposition: HOME SELF-CARE
== END 2023-11-09 13:15 | disposition home or self-care (01) | DRG 785 ==
LOC: 4FBP 10:00
PROVIDERS: ADMIT Obstetrics & Gynecology; ATTEND Obstetrics & Gynecology
PROC: 0UB70ZZ Excision of Bilateral Fallopian Tubes, Open Approach (ICD-10-PCS; principal; 2023-11-07 12:00)
PROC: 10D00Z1 Extraction of Products of Conception, Low, Open Approach (ICD-10-PCS; principal; 2023-11-07 12:00)
DX: O32.0XX0 Maternal care for unstable lie, not applicable or unspecified (principal); O24.429 Gestational diabetes mellitus in childbirth, unspecified control; O40.3XX0 Polyhydramnios, third trimester, not applicable or unspecified; Z30.2 Encounter for sterilization; Z37.0 Single live birth; Z3A.39 39 weeks gestation of pregnancy; Z79.82 Long term (current) use of aspirin; Z28.310 Unvaccinated for COVID-19

== ENCOUNTER 2023-11-13 16:07 | Emergency (ER) | payer BC, OTHER ==
[2023-11-13 16:14] VITALS: BP 169/74; PULSE 65; TEMP 98.3
[2023-11-13] MEDS ORDERED: SODIUM CHLORIDE 0.9% 1,000 ML IV STA (16:17)
--- NOTE | 2023-11-13 16:32 | ED ---
General Adult HPI - General Chief complaint: Shortness of Breath Stated complaint: SOB/chest pain/had baby last week Time Seen by Provider: 11/13/23 16:13 Source: patient, family Mode of arrival: wheelchair Limitations: no limitations - History of Present Illness Initial comments: Dictation was produced using [employer] dictation software. please excuse any gr ammatical, word or spelling errors. Chief Complaint: 43-year-old female who is 6 days presents to the emergency department with shortness of breath, chest pressure and lower extremity edema History of Present Illness: Patient is a 43-year-old female presents to the emergency department with 1 to 2 days of shortness of breath, substernal chest pressure and lower extremity edema. Patient is 6 days states that she did have some gestational hypertension. She is being monitored at the time of for preeclampsia. Patient was never on any blood pressure medications throughout the . States that she has a pressure in her chest. She has so has reportedly a cough. The ROS documented in this emergency department record has been reviewed and confirmed by me. Those systems with pertinent positive or negative responses have been documented in the HPI. All other systems are other negative and/or noncontributory. - Related Data Home Medications Medication Instructions Recorded Confirmed Aspirin 81 mg PO DAILY 10/04/23 11/07/23 Magnesium 1 tab PO DAILY 10/04/23 11/07/23 Vit No.179/Iron/Folic 1 tab PO DAILY 10/04/23 11/07/23 [ Tablet] Allergies Allergy/AdvReac Type Severity Reaction Status Date / Time No Known Allergies Allergy Verified 11/07/23 10:17 Review of Systems ROS Statement: Those systems with pertinent positive or pertinent negative responses have been documented in the HPI. ROS Other: All systems not noted in ROS Statement are negative. 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, knee problems History of Any Multi-Drug Resistant Organisms: None Reported Past Surgical History: No Surgical Hx Reported, Appendectomy, Section Additional Past Surgical History / Comment(s): HAS HAD PRIOR INJECTIONS Past Anesthesia/Blood Transfusion Reactions: No Reported Reaction Past Psychological History: No Psychological Hx Reported Smoking Status: Never smoker Past Alcohol Use History: None Reported Past Drug Use History: None Reported - Past Family History Mother Family Medical History: Cancer General Exam - General Exam Comments Initial Comments: PHYSICAL EXAM: General Impression: Alert and oriented x3, not in acute distress HEENT: Normocephalic atraumatic, extra-ocular movements intact, pupils equal and reactive to light bilaterally, mucous membranes moist. Cardiovascular: Heart regular rate and rhythm Chest: Able to complete full sentences, no retractions, no tachypnea Abdomen: abdomen soft, non-tender, non-distended, no organomegaly Musculoskeletal: Pulses present and equal in all extremities, pitting edema to the lower extremities Motor: no focal deficits noted Neurological: CN II-XII grossly intact, no focal motor or sensory deficits noted Skin: Intact with no visualized rashes Psych: Normal affect and mood Limitations: no limitations Course Vital Signs 11/13/23 11/13/23 16:11 16:34 Temperature 98.3 F Pulse Rate 65 Respiratory 24 18 Rate Blood Pressure 169/74 O2 Sat by Pulse 98 Oximetry - Reevaluation(s) Reevaluation #1: 11/13/23 16:44 Nurse contacted family birthplace given that patient is only 6 days . I did speak with Dr. Montes De Oca who requested that patient be transferred for further care. EKG was obtained showing no acute processes. My EKG interpretation: Ventricular rate 60, sinus rhythm,. 140, QRS 90, QTc 394. No TN prolongation, no QTC prolongation, no ST or T-wave changes noted. Overall, this EKG is unremarkable Medical Decision Making - Medical Decision Making Was pt. sent in by a medical professional or institution (, PA, [employer], urgent care, hospital, or senior living...) When possible be specific @ -No Did you speak to anyone other than the patient for history (EMS, parent, family, police, friend...)? What history was obtained from this source @ -No Did you review nursing and triage notes (agree or disagree)? Why? @ -I reviewed and agree with nursing and triage notes Were old charts reviewed (outside hosp., previous admission, EMS record, old EKG, old radiological studies, urgent care reports/EKG's, senior living records)? Report findings @ -No old charts were reviewed Differential Diagnosis (chest pain, altered mental status, abdominal pain women, abdominal pain men, vaginal bleeding, musculoskeletal, weakness, fever, dyspnea, syncope, headache, dizziness, GI bleed, back pain, seizure, CVA, palpatations, mental health)? @ -Preeclampsia, eclampsia, coronary artery dissection, pulmonary embolism EKG interpreted by me (3pts min.). @ -See above X-rays interpreted by me (1pt min.). @ -None done CT interpreted by me (1pt min.). @ -None done U/S interpreted by me (1pt. min.). @ -None done What testing was considered but not performed or refused? (CT, X-rays, U/S, labs)? Why? @ -None What meds were considered but not given or refused? Why? @ -None Was smoking cessation discussed for >3mins.? @ -No Were there social determinants of health that impacted care today? How? (Homelessness, low income, unemployed, alcoholism, drug addiction, transportation, low edu. Level, literacy, decrease access to med. care, long-term, rehab)? @ -No Was there de-escalation of care discussed even if they declined (Discuss DNR or withdrawal of care, Hospice)? DNR status @ -No What co-morbidities impacted this encounter? (DM, HTN, Smoking, COPD, CAD, Cancer, CVA, ARF, Chemo, Hep., AIDS, mental health diagnosis, sleep apnea, mo rbid obesity)? @ -None Was patient admitted / discharged? Hospital course, mention meds given and route, prescriptions, significant lab abnormalities, going to OR and other pertinent info. @ -43-year-old female presents to the ER for chest pressure, lower extremity swelling and shortness of breath. Patient initial blood pressure suspicious for preeclampsia. Patient otherwise well-appearing at the bedside. Signs shows blood pressure of 169 systolic. Case was discussed with MANAGER STERILE on-call, Dr. Waters requested patient be transferred upstairs to [facility] for further care. Did you discuss the management of the patient with other professionals (professionals i.e. , PA, [employer], lab, RT, psych nurse, family welfare social work professor, career development manager, teacher, guest relations officer, case worker)? Give summary @ -As above Was critical care preformed (if so, how long)? @ -yes, 33 minutes for immediately female with concern for emergency Undiagnosed new problem with uncertain prognosis? @ -No Drug Therapy requiring intensive monitoring for toxicity (Heparin, Nitro, Insulin, Cardizem)? @ -No Were any procedures done? @ -No Diagnosis/symptom? Acute, or Chronic, or Acute on Chronic? Uncomplicated (without systemic symptoms) or Complicated (systemic symptoms)? @ -Chest pressure, shortness of breath and lower extremity edema Side effects of treatment? @ -No Exacerbation, Progression, or Severe Exacerbation? @ -No Poses a threat to life or bodily function? How? (Chest pain, [place], DC, pneumonia, PE, COPD, DKA, ARF, appy, cholecystitis, CVA, Diverticulitis, Homicidal, Suicidal, threat to staff... and all critical care pts) @ -yes Disposition Clinical Impression: Chest pressure Disposition: OTHER INSTITUTION NOT DEFINED Condition: Serious Additional Instructions: go directly to [facility] Is patient prescribed a controlled substance at d/c from ED?: No Referrals: None,Stated [Primary Care Provider] - 1-2 days Time of Disposition: 16:46 - Out of Hospital Transfer - Req. Specs Out of Hospital Transfer - Requested Specifics: Other Emergency Center ([facility])
[2023-11-13 16:42] VITALS: RESP 18
[2023-11-13 17:11] LABS: ALT 34 U/L (4-34); AST 33 U/L (14-36); African American GFR (CKD) 78 (>60 ml/min/1.73 sqM); Albumin 3.2 g/dL (3.5-5.0); Alkaline Phosphatase 149 U/L (38-126); Anion Gap 2 mmol/L; Basophils % (A) 0 %; Blood Urea Nitrogen 12 mg/dL (7-17); Calcium 8.7 mg/dL (8.4-10.2); Carbon Dioxide 26 mmol/L (22-30); Chloride 110 mmol/L (98-107); Eosinophils # (A) 0.2 k/uL (0-0.7); Eosinophils % (A) 2 %; Glucose 97 mg/dL (74-99); HCT 30.4 % (34.0-46.0); HGB 10.3 gm/dL (11.4-16.0); LDH 304 U/L (120-246); Lymphocytes # (A) 1.4 k/uL (1.0-4.8); Lymphocytes % (A) 17 %; MCH 28.5 pg (25.0-35.0); MCHC 33.9 g/dL (31.0-37.0); MCV 84.2 fL (80.0-100.0); Magnesium 2.1 mg/dL (1.6-2.3); Monocytes # (A) 0.5 k/uL (0-1.0); Monocytes % (A) 5 %; Neutrophils # (A) 6.4 k/uL (1.3-7.7); Neutrophils % (A) 75 %; Non-African American GFR(CKD) 67 (>60 ml/min/1.73 sqM); Platelet Count 270 k/uL (150-450); RBC 3.61 m/uL (3.80-5.40); RDW 14.4 % (11.5-15.5); Sodium 138 mmol/L (137-145); Total Bilirubin 0.5 mg/dL (0.2-1.3); Total Protein 5.9 g/dL (6.3-8.2); Uric Acid 6.9 mg/dL (3.7-7.4); WBC 8.6 k/uL (3.8-10.6)
== END 2023-11-13 16:50 | disposition other institution (70) ==
LOC: EC 16:07
CPT/HCPCS: 36415; 80053; 83615; 83735; 84484; 84550; 85025; 85379; 99291

== ENCOUNTER 2023-11-13 16:56 | Observation (INO) | payer BC, OTHER ==
--- NOTE | 2023-11-13 18:10 | XR ---
EXAMINATION TYPE: XR chest 2V DATE OF EXAM: 11/13/2023 COMPARISON: None INDICATION: Difficulty breathing TECHNIQUE: Frontal and lateral views of the chest are obtained. FINDINGS: The heart size is normal. The pulmonary vasculature is prominent. Mild diffuse increased lung markings are present. Correlate for by some minimal left pleural fluid ma y be present. IMPRESSION: 1. Prominent pulmonary vascular markings and diffuse increased lung markings. Correlate for pulmonary edema. 2. Minimal left pleural effusion
--- NOTE | 2023-11-13 18:43 | P.HPOB ---
History of Present Illness H&P Date: 11/13/23 Chief Complaint: Shortness of breath This is a 43-year-old 1 para 1 that presented to the emergency department this afternoon with complaints of increasing shortness of breath. Patient states that shortness of breath began yesterday afternoon and has worsened. Patient states when she was attempting to sleep last night she had to sit up secondary to the significant shortness of breath. Patient is approximately 6 days status post primary for unstable lie, and polyhydramnios. Patient on initial evaluation in the emergency department had blood pressures of 160s over 70s. Patient was transferred to labor and delivery given elevated blood pressures and blood pressures currently are 140s over 70s. Patient is significantly short of breath upon presentation to labor and delivery, chest x- ray was ordered revealing pulmonary edema. In addition troponin was ordered by the emergency department and it was slightly elevated. 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, knee problems History of Any Multi-Drug Resistant Organisms: None Reported Past Surgical History: No Surgical Hx Reported, Appendectomy, Section Additional Past Surgical History / Comment(s): HAS HAD PRIOR INJECTIONS Past Anesthesia/Blood Transfusion Reactions: No Reported Reaction Smoking Status: Never smoker - Past Family History Mother Family Medical History: Cancer Medications and Allergies Home Medications Medication Instructions Recorded Confirmed Type Vit No.179/Iron/Folic 1 tab PO DAILY 10/04/23 11/13/23 History [ Tablet] Acetaminophen 1,000 mg PO Q6HR 11/13/23 11/13/23 History Ibuprofen 600 mg PO Q6H 11/13/23 11/13/23 History Allergies Allergy/AdvReac Type Severity Reaction Status Date / Time No Known Allergies Allergy Verified 11/13/23 17:03 Exam Osteopathic Statement: *. No significant issues noted on an osteopathic structural exam other than those noted in the History and Physical/Consult. Vital Signs Temp Pulse Resp BP Pulse Ox 09/02/24 17:02 98 F 75 20 165/74 93 L Intake and Output 11/13/23 11/13/23 11/13/23 06:59 14:59 22:59 Other: Weight 117.027 kg Targeted physical exam is performed on this date General Is well-nourished well- developed female that appears distressed, breathing appears labored. On abdominal exam, abdomen is soft and nontender, incision is clean dry and intact. +2 bilateral pitting edema is appreciated. Assessment and Plan (1) Shortness of breath Current Visit: Yes Status: Acute Code(s): R06.02 - SHORTNESS OF BREATH SNOMED Code(s): 272472707 (2) Pulmonary edema Current Visit: Yes Status: Acute Code(s): J81.1 - CHRONIC PULMONARY EDEMA SNOMED Code(s): 57448844 (3) S/P section Current Visit: No Status: Acute Code(s): Z98.891 - HISTORY OF UTERINE SCAR FROM PREVIOUS SURGERY SNOMED Code(s): 581969978 (4) Elevated troponin Current Visit: Yes Status: Acute Code(s): R79.89 - OTHER SPECIFIED ABNORMAL FINDINGS OF BLOOD CHEMISTRY SNOMED Code(s): 106376839 Plan: 43-year-old 1 now para 1 status post section approximately 6 days ago. Patient was admitted with worsening shortness of breath, and chest x-ray pu lmonary edema was appreciated sound physicians were consulted and are assuming care. In addition troponin was noted to be elevated, further workup will be managed per sound physicians.
[2023-11-13] MEDS: AZITHROMYCIN 500 MG TAB PO STA (18:47)
[2023-11-13] MEDS: IBUPROFEN 600 MG TAB PO SCH (19:33)
[2023-11-13] MEDS ORDERED: hydrALAZINE HCL 20 MG/ML 1 ML VIAL IVP PRN (20:22)
[2023-11-13] MEDS: FUROSEMIDE 10 MG/ML 4 ML VIAL IV SCH (20:47)
[2023-11-13 21:55] LABS: ALT 31 U/L (4-34); AST 30 U/L (14-36); African American GFR (CKD) 78 (>60 ml/min/1.73 sqM); Albumin 2.9 g/dL (3.5-5.0); Alkaline Phosphatase 145 U/L (38-126); Anion Gap 5 mmol/L; Blood Urea Nitrogen 12 mg/dL (7-17); Calcium 8.4 mg/dL (8.4-10.2); Carbon Dioxide 23 mmol/L (22-30); Chloride 109 mmol/L (98-107); Glucose 108 mg/dL (74-99); Non-African American GFR(CKD) 68 (>60 ml/min/1.73 sqM); Potassium 3.8 mmol/L (3.5-5.1); Sodium 137 mmol/L (137-145); Total Bilirubin 0.5 mg/dL (0.2-1.3); Total Protein 5.3 g/dL (6.3-8.2)
[2023-11-13 22:11] LABS: Basophils % (A) 0 %; Eosinophils # (A) 0.2 k/uL (0-0.7); Eosinophils % (A) 2 %; HCT 26.6 % (34.0-46.0); HGB 8.9 gm/dL (11.4-16.0); Lymphocytes # (A) 1.1 k/uL (1.0-4.8); Lymphocytes % (A) 14 %; MCH 28.6 pg (25.0-35.0); MCHC 33.6 g/dL (31.0-37.0); MCV 85.1 fL (80.0-100.0); Mean Platelet Volume 8.5; Monocytes # (A) 0.5 k/uL (0-1.0); Monocytes % (A) 6 %; Neutrophils # (A) 6.1 k/uL (1.3-7.7); Neutrophils % (A) 77 %; Platelet Count 260 k/uL (150-450); RBC 3.12 m/uL (3.80-5.40); RDW 14.1 % (11.5-15.5)
--- NOTE | 2023-11-13 22:30 | P.CONS ---
History of Present Illness - Reason for Consult Consult date: 11/13/23 shortness of breath - Chief Complaint shortness of breath - History of Present Illness Patient is a previously healthy 43-year-old female status post section 6 days ago , presents with shortness of breath. She states shortness of breath occurred last night while she was sleeping. She said the dyspnea is made worse when laying down and with exertion. She states it is partially relieved when sitting up in bed. She admits that chest pain, headache, low-grade fever. she reports bilateral leg edema, denies any calf muscle tenderness. 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 denies any cough , sore throat, runny nose, known sick contacts. denies any history of blood clots, or cardiac disease. denies any history of COPD. denies smoking , illicit drugs or alcohol Review of systems: Pertinent positives and negatives as discussed in HPI, a complete review of systems was performed and all other systems are negative. Physical examination: Vitals: T 98.6F, CT 75, RR 38, BP 151/74, O2 sat 95% on 2 L nasal cannula General: non toxic, no distress, appears at stated age, obese, patient sitting upright in bed Derm: no unusual rashes/lesions, warm Head: atraumatic, normocephalic, symmetric Eyes: EOMI, anicteric sclera, pupils equal round reactive to light ENT: Nose and ears atraumatic Neck: No cervical lymphadenopathy, trachea midline, supple Mouth: no lip lesion, mucus membranes moist Cardiovascular: S1S2 reg, no murmur, positive dorsalis pedis pulse bilateral, b/l LE pitting edema +2 Lungs: good breath sounds bilaterally , fine rales at lung bases, no wheezing or rhonchi , no accessory muscle use Abdominal: soft, nontender to palpation, no guarding Ext: muscle strength 5 out of 5 in all 4 extremities grossly, no gross muscle atrophy, no contractures, Neuro: CN II-XI grossly intact, no gross focal neuro deficits Psych: Alert, oriented, appropriate affect Assessment/Plan: Patient is a 43-year-old female status post section 6 days ago presents with shortness of breath of 2 nights duration, worse with laying down and mild exertion, no reported history of blood clots , CHF or other cardiac disease, Medicine consulted for further workup. #. Acute hypoxic respiratory failure CXR on independent interpretation showed prominent pulmonary vascular markings and diffuse increased lung markings likely demonstrating pulmonary edema, small left pleural effusion noted as well Patient status post day 6 Patient volume overloaded RR 38, SaO2 95% on 2 L nasal cannula Ordered furosemide 40 mg IV q12 hr Order echocardiogram, rule out peripartum cardiomyopathy Heart healthy diet, fluid restriction 2 L daily Intake output close monitoring Daily weight checks Monitor on telemetry CBC, CMP, magnesium ordered, will monitor elevated D dimer, suspected due to her recent surgery C section, PE could not completely ruled out, but currently her hypoxemia and SOB is suspected to be due to pulmonary vascular congestion . check bilateral LE doppler. if after diuresis , she continues to be SOB, then consider CT angio of the chest to check for PE. Respiratory viral panel negative for covid , RSV and Influenza supplemental oxygen as needed #. Hypertension BP 151/74 Patient with history of gestational hypertension Hydralazine HCl 10 mg IVP Q6 HR as needed for SBP >160 Continue to monitor blood pressure start PO hydralazine 25 mg BID will avoid nifedipine and labetalol at this time , awaiting results of ec hocardiogram Goal blood pressure <140/90 for the first 6 weeks post . elevated Troponin check EKG trend Trops, if continues to trend up, increases the likelihood of cardiac, vs PE as an underlying condition subacute Anemia possibly related to her recent C section and post continue to monitor transfuse for Hgb <7 patient denies any overt bleeding at this time currently Hgb 8.9 renal function unremarkable BUN 12 cr 1, Na 137 K 3.8 Pain management: Acetaminophen 1000 mg PO q6hr PRN, ibuprofen 600 mg PO q6hr PRN DVT prophylaxis: Lovenox 40 SQ daily. 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, knee problems History of Any Multi-Drug Resistant Organisms: None Reported Past Surgical History: No Surgical Hx Reported, Appendectomy, Section Additional Past Surgical History / Comment(s): HAS HAD PRIOR INJECTIONS Past Anesthesia/Blood Transfusion Reactions: No Reported Reaction Smoking Status: Never smoker - Past Family History Mother Family Medical History: Cancer Medications and Allergies Home Medications Medication Instructions Recorded Confirmed Type Vit No.179/Iron/Folic 1 tab PO DAILY 10/04/23 11/13/23 History [ Tablet] Acetaminophen 1,000 mg PO Q6HR 11/13/23 11/13/23 History Ibuprofen 600 mg PO Q6H 11/13/23 11/13/23 History Allergies Allergy/AdvReac Type Severity Reaction Status Date / Time No Known Allergies Allergy Verified 11/13/23 17:03 Physical Exam Vitals: Vital Signs Temp Pulse Resp BP Pulse Ox 11/13/23 21:04 98.6 F 75 38 H 151/74 95 11/13/23 19:50 36 H 165/78 96 11/13/23 19:40 99.1 F 85 40 H 162/89 93 L 11/13/23 18:00 98.0 F 74 20 143/72 96 11/13/23 17:02 98 F 75 20 165/74 93 L Intake and Output 11/13/23 11/13/23 11/13/23 06:59 14:59 22:59 Other: Weight 117.1 kg Results CBC & Chem 7: 11/13/23 21:25 11/13/23 21:25 Assessment and Plan Assessment: I saw and examined the patient independently , I discussed the case with the Resident and addend the H&p and A&P where necessary
[2023-11-14] MEDS: hydrALAZINE HCL 25 MG TAB PO SCH (00:35)
[2023-11-14] MEDS: ASPIRIN 325 MG TAB PO STA (02:16)
--- NOTE | 2023-11-14 07:49 | US ---
EXAMINATION TYPE: US venous doppler duplex LE DATE OF EXAM: 11/14/2023 12:05 AM COMPARISON: NONE CLINICAL INDICATION: Female, 43 years old with history of DVT r/o; 6 days post OP C-sec, karolina BRAY no known prior DVT SIDE PERFORMED: Bilateral TECHNIQUE: The lower extremity deep venous system is examined utilizing real time linear array sonog mary lou with graded compression, doppler sonography and color-flow sonography. VESSELS IMAGED: Common Femoral Vein Deep Femoral Vein Greater Saphenous Vein * Femoral Vein Popliteal Vein Small Saphenous Vein * Proximal Calf Veins (* superficial vessels) Right Leg: Negative for DVT Left Leg: Negative for DVT IMPRESSION: Grayscale, color doppler, spectral doppler imaging performed of the deep veins of the lo wer extremities. There is normal flow, compressibility, vascular waveforms.
[2023-11-14] MEDS: AZITHROMYCIN 500 MG TAB PO SCH (08:45)
[2023-11-14] MEDS: ENOXAPARIN 40 MG/0.4 ML SYRINGE SQ SCH (08:46)
[2023-11-14] MEDS: FAMOTIDINE 20 MG TAB PO SCH (08:46)
--- NOTE | 2023-11-14 10:12 | CA ---
Transthoracic Echo Report Name: Lizbeth Nino Age: 43 Gender: F : 1980 Exam Date: 11/14/2023 09:15 Exam Location: [place] [facility] Ht (in): 65 Wt (lb): 258 Ordering Physician: Kelly Thao MD Attending/Referring Phys: [id number], Keesha Fish Bin Tender Yanet Tobias, [facility] Procedure CPT: Indications: pulmonary edema Cardiac Hx: Technical Quality: Fair Contrast 1: Total Dose (mL): Contrast 2: Total Dose (mL): MEASUREMENTS (Male / Female) Normal Values 2D ECHO LV Diastolic Diameter PLAX 5.5 cm 4.2 - 5.9 / 3.9 - 5.3 cm LV Systolic Diameter PLAX 4.0 cm IVS Diastolic Thickness 1.1 cm 0.6 - 1.0 / 0.6 - 0.9 cm LVPW Diastolic Thickness 1.0 cm 0.6 - 1.0 / 0.6 - 0.9 cm LV Relative Wall Thickness 0.4 RV Internal Dim ED PLAX 3.1 cm LA Systolic Diameter LX 3.8 cm 3.0 - 4.0 / 2.7 - 3.8 cm LV Diastolic Volume MOD BP 124.2 cm??? 67 - 155 / 56 - 104 cm??? LV Systolic Volume MOD BP 60.7 cm??? - / 19 - 49 cm??? LV Ejection Fraction MOD BP 51.1 % >= 55 % LV Cardiac Index MOD BP 1628.4 cm???/min???m??? LV Diastolic Volume MOD 4C 136.4 cm??? LV Systolic Volume MOD 4C 54.2 cm??? LV Ejection Fraction MOD 4C 60.3 % LV Cardiac Index MOD 4C 2107.3 cm???/min???m??? LV Diastolic Length 4C 7.6 cm LV Systolic Length 4C 6.1 cm LV Diastolic Volume MOD 2C 111.0 cm??? LV Systolic Volume MOD 2C 63.2 cm??? LV Ejection Fraction MOD 2C 43.1 % LV Cardiac Index MOD 2C 1226.5 cm???/min???m??? LV Diastolic Length 2C 7.7 cm LV Systolic Length 2C 6.7 cm LA Volume 75.7 cm??? - 58 / 22 - 52 cm??? LA Volume Index 31.8 cm???/m??? 16 - 28 cm???/m??? M-MODE Aortic Root Diameter MM 3.5 cm AV Cusp Separation MM 2.1 cm DOPPLER AV Peak Velocity 158.0 cm/s AV Peak Gradient 10.0 mmHg AI Peak Velocity 147.3 cm/s AI Peak Gradient 8.7 mmHg MV Area PHT 4.7 cm??? Mitral E Point Velocity 116.1 cm/s Mitral A Point Velocity 50.0 cm/s Mitral E to A Ratio 2.3 MV Deceleration Time 161.6 ms TR Peak Velocity 267.1 cm/s TR Peak Gradient 28.5 mmHg Right Ventricular Systolic Press 44.0 mmHg FINDINGS Left Ventricle Left ventricular ejection fraction is estimated at 50-55 %. Mildly increased septal wall thickness. Mildly increased posterior wall thickness. Mildly increased left ventricular diastolic diameter. Moderately increased left ventricular diastolic volume. Moderately increased left ventricular systolic volume. Mildly decreased left ventricular ejection fraction with possible inferior basal hypokinesis Right Ventricle Normal right ventricular size. Mild pulmonary hypertension. Right Atrium Normal right atrial size. No right atrial thrombus or mass seen. Left Atrium Mildly increased left atrial volume. Mildly increased left atrial area. No left atrial thrombus or mass present. Mitral Valve Structurally normal mitral valve. Mild mitral regurgitation. Aortic Valve Trileaflet aortic valve. No aortic valve stenosis or regurgitation. Tricuspid Valve Structurally normal tricuspid valve. Mild tricuspid regurgitation. Pulmonic Valve Structurally normal pulmonic valve. No pulmonic regurgitation. Pericardium No pericardial effusion. Aorta Normal size aortic root and proximal ascending aorta. CONCLUSIONS Fair systolic function LV at upper limits of normal possible inferobasal hypokinesia. Mild mitral and tricuspid regurgitation. No pericardial effusion Previewed by: Dr. Saurabh Strickland MD (Electronically Signed) Final Date: 14 November 2023 10:10
[2023-11-14 11:30] LABS: Basophils % (A) 0 %; Eosinophils # (A) 0.3 k/uL (0-0.7); Eosinophils % (A) 4 %; HCT 28.8 % (34.0-46.0); HGB 9.6 gm/dL (11.4-16.0); Lymphocytes # (A) 1.1 k/uL (1.0-4.8); Lymphocytes % (A) 17 %; MCH 28.4 pg (25.0-35.0); MCHC 33.3 g/dL (31.0-37.0); MCV 85.2 fL (80.0-100.0); Mean Platelet Volume 8.8; Monocytes # (A) 0.4 k/uL (0-1.0); Monocytes % (A) 6 %; Neutrophils # (A) 4.6 k/uL (1.3-7.7); Neutrophils % (A) 71 %; Platelet Count 261 k/uL (150-450); RBC 3.38 m/uL (3.80-5.40); RDW 14.1 % (11.5-15.5); WBC 6.5 k/uL (3.8-10.6)
[2023-11-14 11:43] LABS: African American GFR (CKD) 74 (>60 ml/min/1.73 sqM); Anion Gap 2 mmol/L; Blood Urea Nitrogen 14 mg/dL (7-17); Calcium 8.7 mg/dL (8.4-10.2); Carbon Dioxide 29 mmol/L (22-30); Chloride 107 mmol/L (98-107); Glucose 87 mg/dL (74-99); Magnesium 1.9 mg/dL (1.6-2.3); Non-African American GFR(CKD) 64 (>60 ml/min/1.73 sqM); Potassium 3.7 mmol/L (3.5-5.1); Sodium 138 mmol/L (137-145)
[2023-11-14 11:51] LABS: NT-Pro-B-Type Natriuretic Pept 1940 pg/mL
--- NOTE | 2023-11-14 12:24 | P.PN ---
Subjective Progress Note Date: 11/14/23 Principal diagnosis: Pulmonary edema 1 week post section The patient reports feeling significantly improved. She feels that she has significantly less swelling as a general rule and has no difficulty breathing at this time. She is otherwise tolerating a regular diet and her pain is well- controlled. Objective - Vital Signs Vital signs: Vital Signs Temp 97.3 F L 11/14/23 11:59 Pulse 65 11/14/23 11:59 Resp 18 11/14/23 11:59 BP 145/82 11/14/23 11:59 Pulse Ox 98 11/14/23 11:59 FiO2 Intake & Output 11/13/23 11/14/23 11/14/23 18:59 06:59 18:59 Output Total 1450 1600 Balance -1450 -1600 Weight 117.027 kg 110.8 kg Output: Urine 1450 1600 Other: Voiding Method Toilet Toilet # Voids 2 - Exam In general, this is a well-developed, morbidly obese white female in no acute distress. Her abdomen is nondistended, soft, nontender, and without any palpable masses aside from the uterine fundus which is consistent with 1 week post section delivery below the umbilicus and tonic and nontender. The incision is clean, dry, and intact. Her extremities are without any cyanosis, clubbing, or edema and are nontender to palpation bilaterally. - Labs CBC & Chem 7: 11/14/23 11:00 11/14/23 11:00 Labs: Abnormal Lab Results - Last 24 Hours (Table) 11/13/23 11/13/23 11/14/23 Range/Units 21:25 21:25 00:03 RBC 3.12 L (3.80-5.40) m/uL Hgb 8.9 L (11.4-16.0) gm/dL Hct 26.6 L (34.0-46.0) % Chloride 109 H (98-107) mmol/L Creatinine (0.52-1.04) mg/dL Glucose 108 H (74-99) mg/dL Alkaline Phosphatase 145 H (38-126) U/L Troponin I 0.165 H* (0.000-0.034) ng/mL Total Protein 5.3 L (6.3-8.2) g/dL Albumin 2.9 L (3.5-5.0) g/dL 11/14/23 11/14/23 11/14/23 Range/Units 11:00 11:00 11:00 RBC 3.38 L (3.80-5.40) m/uL Hgb 9.6 L (11.4-16.0) gm/dL Hct 28.8 L (34.0-46.0) % Chloride (98-107) mmol/L Creatinine 1.06 H (0.52-1.04) mg/dL Glucose (74-99) mg/dL Alkaline Phosphatase (38-126) U/L Troponin I 0.081 H* (0.000-0.034) ng/mL Total Protein (6.3-8.2) g/dL Albumin (3.5-5.0) g/dL Assessment and Plan (1) Pulmonary edema Current Visit: Yes Status: Acute Code(s): J81.1 - CHRONIC PULMONARY EDEMA SNOMED Code(s): 20300289 Plan: The results of EKG and echocardiogram are pending at this time but the patient has had significant clinical improvement. From a postsurgical and obstetrical standpoint, nothing further needs to be done and we will continue to follow at a distance. Await input from medicine and cardiology as to determination for day of discharge. I have encouraged the patient to continue to ambulate in the hallways if possible.
--- NOTE | 2023-11-14 12:58 | P.CRDCN ---
History of Present Illness History of present illness: HISTORY OF PRESENT ILLNESS: This is a 43-year-old female with no significant past medical history. Patient does not follow with a plexiglas former. We have been asked to see the patient in co nsultation for elevated troponins. Patient examined at the bedside. Patient presented to the hospital with a chief complaint of shortness of breath. Patient underwent on 11/07/2023. Patient states during her she had elevated blood pressure but it was not high enough to diagnose preeclampsia and she did not require antihypertensive medications at that time. Patient states she has been feeling short of breath for the past 2 to 3 days. She does report having a frequent cough as well. She states yesterday she developed chest discomfort which she believes was due to frequent coughing. The patient was started on IV Lasix which she states has helped her breathing. DIAGNOSTICS: - EKG reveals sinus mechanism with no signs of acute ischemia - Chest xray prominent pulmonary vascular markings and diffuse increased lung markings. Correlate for pulm edema. Minimal left pleural effusion. - Laboratory data: WBC 6.5. Hemoglobin 9.6. Platelet count 261. Sodium 138. Potassium 3.7. BUN 14. Creatinine 1.06. Troponin 0.165. 0.081. proBNP 1940. - Current home cardiac medications include none - Echocardiogram obtained this admission reveals ejection fraction 50 to 55% with possible inferior basal hypokinesis, mild pulmonary hypertension, mild mitral regurgitation, mild tricuspid regurgitation REVIEW OF SYSTEMS: At the time of my exam: CONSTITUTIONAL: Denies fever or chills. HEENT: Denies blurred vision, vision changes, or eye pain. Denies hemoptysis CARDIOVASCULAR: Denies chest pain. Denies orthopnea. Denies PND. Denies palpitations RESPIRATORY: Denies shortness of breath. GASTROINTESTINAL: Denies abdominal pain. Denies nausea or vomiting. HEMATOLOGIC: Denies bleeding disorders. GENITOURINARY: Denies any blood in urine. SKIN: Denies pruitis. Denies rash. PHYSICAL EXAM: VITAL SIGNS: Reviewed. GENERAL: Well-developed in no acute distress. HEENT: Head is normocephalic. Pupils are equal, round. Sclerae anicteric. Mucous membranes of the mouth are moist. Neck supple. No JVD or thyromegaly LUNGS: Respirations even and unlabored. Lungs essentially clear to auscultation bilaterally. HEART: Regular rate and rhythm. S1 and S2 heard. ABDOMEN: Soft. Nondistended. Nontender. EXTREMITIES: Normal range of motion. No clubbing or cyanosis. Peripheral pulses intact. No lower extremity edema NEUROLOGIC: Awake and alert. Oriented x 3. ASSESSMENT: Shortness of breath Acute pulmonary edema Elevated troponins, likely type II MA secondary to oxygen supply/demand mismatch Hypertension Status post , November 07, 2023 History of hypertension during , not elevated enough to require medications, per patient PLAN: Repeat EKG performed this morning reveals sinus mechanism with no signs of acute ischemia. 2D echo obtained and reviewed. Increase hydralazine to 50 mg 3 times a day Continue IV Lasix 40 mg every 12 hours Daily weights, accurate intake and output, and monitoring of kidney function Further recommendations pending patient course Nurse practitioner note has been reviewed by physician. Signing provider agrees with the documented findings, assessment, and plan of care documented by WOUND CARE NURSE as a scribe. 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, knee problems History of Any Multi-Drug Resistant Organisms: None Reported Past Surgical History: No Surgical Hx Reported, Appendectomy, Section Additional Past Surgical History / Comment(s): HAS HAD PRIOR INJECTIONS Past Anesthesia/Blood Transfusion Reactions: No Reported Reaction Smoking Status: Never smoker - Past Family History Mother Family Medical History: Cancer Medications and Allergies Home Medications Medication Instructions Recorded Confirmed Type Vit No.179/Iron/Folic 1 tab PO DAILY 10/04/23 11/13/23 History [ Tablet] Acetaminophen 1,000 mg PO Q6HR 11/13/23 11/13/23 History Ibuprofen 600 mg PO Q6H 11/13/23 11/13/23 History Allergies Allergy/AdvReac Type Severity Reaction Status Date / Time No Known Allergies Allergy Verified 11/13/23 17:03 Physical Exam Vitals: Vital Signs Temp Pulse Resp BP Pulse Ox 11/14/23 08:00 97.8 F 59 L 20 134/93 98 11/14/23 03:39 98.1 F 59 L 21 134/70 97 11/14/23 00:00 98.3 F 65 20 144/74 98 11/13/23 21:04 98.6 F 75 38 H 151/74 95 11/13/23 19:50 36 H 165/78 96 11/13/23 19:40 99.1 F 85 40 H 162/89 93 L 11/13/23 18:00 98.0 F 74 20 143/72 96 11/13/23 17:02 98 F 75 20 165/74 93 L Intake and Output 11/13/23 11/14/23 11/14/23 22:59 06:59 14:59 Output Total 950 500 Balance -950 -500 Output: Urine 950 500 Other: Voiding Method Toilet Toilet # Voids 2 Weight 117.1 kg 110.8 kg Results 11/14/23 11:00 11/14/23 11:00 Cardiac Enzymes 11/13/23 11/14/23 Range/Units 21:25 00:03 AST 30 (14-36) U/L Troponin I 0.165 H* (0.000-0.034) ng/mL CBC 11/13/23 Range/Units 21:25 WBC 8.0 (3.8-10.6) k/uL RBC 3.12 L (3.80-5.40) m/uL Hgb 8.9 L (11.4-16.0) gm/dL Hct 26.6 L (34.0-46.0) % Plt Count 260 (150-450) k/uL Comprehensive Metabolic Panel 11/13/23 Range/Units 21:25 Sodium 137 (137-145) mmol/L Potassium 3.8 (3.5-5.1) mmol/L Chloride 109 H (98-107) mmol/L Carbon Dioxide 23 (22-30) mmol/L BUN 12 (7-17) mg/dL Creatinine 1.01 (0.52-1.04) mg/dL Glucose 108 H (74-99) mg/dL Calcium 8.4 (8.4-10.2) mg/dL AST 30 (14-36) U/L ALT 31 (4-34) U/L Alkaline Phosphatase 145 H (38-126) U/L Total Protein 5.3 L (6.3-8.2) g/dL Albumin 2.9 L (3.5-5.0) g/dL Current Medications Generic Name Dose Route Start Last Admin Trade Name Freq PRN Reason Stop Dose Admin Acetaminophen 1,000 mg 11/13/23 19:23 Acetaminophen Tab 500 Mg Tab PO Q6HR PRN Fever and/ or Pain Aspirin 81 mg 11/15/23 09:00 Aspirin 81 Mg PO DAILY JESSICA Azithromycin 250 mg 11/14/23 09:00 11/14/23 08:45 Azithromycin 500 Mg Tab PO 11/18/23 09:01 250 mg DAILY JESSICA Administration Protocol Enoxaparin Sodium 40 mg 11/14/23 09:00 11/14/23 08:46 Enoxaparin 40 Mg/0.4 Ml Syringe SQ 40 mg DAILY JESSICA Administration Famotidine 20 mg 11/14/23 09:00 11/14/23 08:46 Famotidine 20 Mg Tab PO 20 mg BID JESSICA Administration Furosemide 40 mg 11/13/23 21:00 11/14/23 08:46 Furosemide 10 Mg/Ml 4 Ml Vial IV 40 mg Q12HR JESSICA Administration Hydralazine HCl 10 mg 11/13/23 20:22 Hydralazine Hcl 20 Mg/Ml 1 Ml Vial IVP Q6HR PRN Blood Pressure - High Hydralazine HCl 25 mg 11/13/23 23:30 11/14/23 08:46 Hydralazine Hcl 25 Mg Tab PO 25 mg BID JESSICA Administration Ibuprofen 600 mg 11/13/23 19:30 11/14/23 06:24 Ibuprofen 600 Mg Tab PO 600 mg Q6H JESSICA Administration Intake and Output 11/13/23 11/14/23 11/14/23 22:59 06:59 14:59 Output Total 950 500 Balance -950 -500 Output: Urine 950 500 Other: Voiding Method Toilet Toilet # Voids 2 Weight 117.1 kg 110.8 kg 11/13/23 21:25 11/13/23 21:25
--- NOTE | 2023-11-14 13:03 | P.PN ---
Subjective Progress Note Date: 11/14/23 Subjective: Patient seen and examined at the bedside. Currently not breast-feeding. Not complaining of significant shortness of breath at rest. All Systems reviewed and pertinent positives and negatives noted in HPI, all other symptoms are negative Objective: Vital signs reviewed. Temperature 98.1 F, heart rate 59, respiratory rate 21, blood pressure 134/70, oxygen saturation 97% on 2 L via nasal cannula General: non toxic, no distress, appears at stated age, normal weight Derm: no unusual rashes/lesions, warm Head: atraumatic, normocephalic, symmetric Eyes: EOMI, no lid lag, anicteric sclera, pupils equal round reactive to light ENT: Nose and ears atraumatic Neck: No cervical lymphadenopathy, trachea midline, supple Mouth: no lip lesion, mucus membranes moist Cardiovascular: S1S2 reg, no murmur, positive dorsalis pedis pulse bilateral, no edema Lungs: CTA bilateral, no rhonchi, no rales, no accessory muscle use Abdominal: soft, nontender to palpation, no guarding Ext: muscle strength 5 out of 5 in all 4 extremities grossly, no gross muscle atrophy, no contractures, Neuro: CN II-XI grossly intact, no gross focal neuro deficits Psych: Alert, oriented, appropriate affect Data reviewed today: Labs: WBC 8.0, hemoglobin 8.9, hematocrit 26.6, MCV 85.1, sodium 137, potassium 3.8, chloride 109, bicarb 23, BUN 12, creatinine 1.01, EGFR 68, glucose 108, m agnesium 2.0, AST 30, ALT 31, alkaline phosphatase 145 Troponin I 0.165 proBNP 1941 Influenza type a and type B, RSV, SARSCov2 are negative Images: Chest x-ray shows prominent pulmonary vascular markings and diffuse increased lung markings. Minimal left pleural effusion Echocardiogram shows LVEF 50 to 55% within mildly increased septal wall and posterior wall thickness. Mildly decreased left ventricular ejection fraction with possible inferior basal hypokinesis EKG independently interpreted, shows normal sinus rhythm with heart rate of 60 bpm. OR interval 140 ms, not prolonged. QRS duration 91 ms, not prolonged. QTc 437 ms, not prolonged. No ST and T wave changes noted. Bilateral lower extremity Doppler is negative for DVT Assessment and Plan: 43-year-old female status post section 6 days ago presents with shortness of breath for 2 nights. Patient reports exertional dyspnea and orthopnea. No reported history of blood clot, congestive heart failure or other cardiac disease. Chest x-ray is remarkable for pulmonary vascular congestion. Medicine is consulted for further workup. #Acute hypoxic respiratory failure secondary to congestive heart failure exacerbation #NSTEMI, likely type II Troponin is trending down from 0.165-0.081 Continue to trend troponin Patient status post day 6 Patient volume overloaded Continue with furosemide 40 mg IV q12 hr, monitor electrolytes Heart healthy diet, fluid restriction 2 L daily Strict I's and O's Daily weight checks Monitor on telemetry Continue monitoring CBC, CMP elevated D dimer, suspected due to her recent surgery C section, PE could not completely ruled out, but currently her hypoxemia and SOB is suspected to be due to pulmonary vascular congestion . Bilateral lower extremity Dopplers negative if after diuresis , she continues to be SOB, then consider CT angio of the chest to check for PE. Respiratory viral panel negative for covid , RSV and Influenza supplemental oxygen as needed Cardiology consulted Continue aspirin 81 mg daily #Hypertension BP improving Patient with history of gestational hypertension Hydralazine HCl 10 mg IVP Q6 HR as needed for SBP >160 Continue to monitor blood pressure Hydralazine increased to 50 3 times daily by cardiology will avoid nifedipine and labetalol at this time , awaiting results of echocardiogram Goal blood pressure <140/90 for the first 6 weeks post . #Subacute Anemia possibly related to her recent C section and post continue to monitor transfuse for Hgb <7 patient denies any overt bleeding at this time #Renal function unremarkable BUN 12 cr 1.01, Na 137 K 3.8 #Sinus infection Zithromax 250 mg p.o. daily x 5 days F: None E: Replete as needed N: Heart healthy diet with fluid restriction 2 L A: Ambulatory DVT ppx: Lovenox 40 mg subcu daily Code Status: Full code Anticipated discharge place: Pending clinical course Anticipated discharge date: Pending clinical course I have seen and evaluated the patient today. Discussed with the resident and agree with the residents finding and plan as documented in the resident's note. Changes highlighted in blue font. Objective - Vital Signs Vital signs: Vital Signs Temp 98.1 F 11/14/23 03:39 Pulse 59 L 11/14/23 03:39 Resp 21 11/14/23 03:39 BP 134/70 11/14/23 03:39 Pulse Ox 97 11/14/23 03:39 FiO2 Intake & Output 11/13/23 11/13/23 11/14/23 06:59 18:59 06:59 Output Total 1450 Balance -1450 Weight 117.027 kg 110.8 kg Output: Urine 1450 Other: Voiding Method Toilet # Voids 2 - Labs CBC & Chem 7: 11/14/23 11:00 11/14/23 11:00 Labs: Abnormal Lab Results - Last 24 Hours (Table) 11/13/23 11/13/23 11/14/23 Range/Units 21:25 21:25 00:03 RBC 3.12 L (3.80-5.40) m/uL Hgb 8.9 L (11.4-16.0) gm/dL Hct 26.6 L (34.0-46.0) % Chloride 109 H (98-107) mmol/L Glucose 108 H (74-99) mg/dL Alkaline Phosphatase 145 H (38-126) U/L Troponin I 0.165 H* (0.000-0.034) ng/mL Total Protein 5.3 L (6.3-8.2) g/dL Albumin 2.9 L (3.5-5.0) g/dL
[2023-11-14] MEDS: ACETAMINOPHEN TAB 500 MG TAB PO PRN (15:32)
[2023-11-14] MEDS: hydrALAZINE HCL 50 MG TAB PO SCH (15:35)
[2023-11-14] MEDS: LABETALOL 100 MG TAB PO SCH (17:56)
[2023-11-15 08:17] LABS: African American GFR (CKD) 58 (>60 ml/min/1.73 sqM); Anion Gap 6 mmol/L; Blood Urea Nitrogen 20 mg/dL (7-17); Calcium 8.4 mg/dL (8.4-10.2); Carbon Dioxide 29 mmol/L (22-30); Chloride 104 mmol/L (98-107); Glucose 93 mg/dL (74-99); Non-African American GFR(CKD) 50 (>60 ml/min/1.73 sqM); Potassium 3.6 mmol/L (3.5-5.1); Sodium 139 mmol/L (137-145)
[2023-11-15] MEDS ORDERED: ASPIRIN 81 MG PO SCH (09:00)
--- NOTE | 2023-11-15 09:11 | P.DS ---
Providers Date of admission: 11/13/23 17:57 Expected date of discharge: 11/15/23 Attending physician: Naomi Montes De Oca Consults: 11/13/23 18:01 Consult Physician Stat Consulting Provider: Rudy Bar Consult Reason/Comments: new admission, Shortness of breath, abnormal labs. Do you want consulting provider notified?: Yes Placement Type Exists?: Yes 11/14/23 01:07 Consult Physician Routine Consulting Provider: Froilan Portillo Consult Reason/Comments: elevated trops, pulmonary vascular congestion Do you want consulting provider notified?: Yes, Notify in am Placement Type Exists?: Yes Primary care physician: Stated None - Discharge Diagnosis(es) (1) Pulmonary edema Current Visit: Yes Status: Acute Hospital Course: The patient is a 43-year-old 2 para 1-0-1-1 who was admitted approximately 6 days status post delivery which was uncomplicated in nature. She presented to the emergency room with a 2-day history of significantly increasing dyspnea and shortness of breath, particularly when laying flat. This was accompanied by some chest pain. In the emergency room, she was found to have pulmonary edema and was admitted for management of fluid overload. She had internal medicine consultation as well as cardiology consultation. Cardiac workup with serial EKGs and echocardiogram since that time has been essentially negative. She was started on antihypertensive therapy as well as diuresis with Lasix. She had a significant amount of diuresis and, within 24 hours, was feeling significantly improved with minimal to no shortness of breath and was performing all activities of daily living. This morning on hospital day #3, she has been cleared by cardiology for discharge we will make some changes in antihypertensive outpatient therapy and have her follow-up in their office. She is deemed stable for discharge and is discharged home to follow-up in my office in 1 week as previously scheduled as well as 6 weeks in standard fashion. Discharge instructions remain as usual for post delivery with instructions now to call for any increasing symptoms of shortness of breath or chest pain. Discharge medications from a postoperative perspective continued to be only [id number] analgesic pain medications. Cardiology will direct her antihypertensive therapy and dictate their follow-up as well. She understood her instructions and agrees to follow-up as noted above. Procedures: #1. Chest x-ray #2. Serial EKG #3. Echocardiogram #4. Internal medicine consultation #5. Cardiology consultation Patient Condition at Discharge: Stable Plan - Discharge Summary New Discharge Prescriptions: No Action Vit No.179/Iron/Folic [ Tablet] 1 tab PO DAILY Acetaminophen 1,000 mg PO Q6HR Ibuprofen 600 mg PO Q6H Discharge Medication List Vit No.179/Iron/Folic [ Tablet] 1 tab PO DAILY 10/04/23 [History] Acetaminophen 1,000 mg PO Q6HR 11/13/23 [History] Ibuprofen 600 mg PO Q6H 11/13/23 [History] Follow up Appointment(s)/Referral(s): Jerry Salas MD [STAFF PHYSICIAN] - 2 Weeks Erich Miranda MD [STAFF PHYSICIAN] - 1 Week Discharge Disposition: HOME SELF-CARE
--- NOTE | 2023-11-15 11:54 | P.PN ---
Subjective Progress Note Date: 11/15/23 Subjective: Patient seen and examined at the bedside. Currently not breast-feeding. Not complaining of significant shortness of breath at rest. Not complaining of any chest pain. All Systems reviewed and pertinent positives and negatives noted in HPI, all other symptoms are negative Objective: Vital signs reviewed. General: non toxic, no distress, appears at stated age, normal weight Derm: no unusual rashes/lesions, warm Head: atraumatic, normocephalic, symmetric Eyes: EOMI, no lid lag, anicteric sclera, pupils equal round reactive to light ENT: Nose and ears atraumatic Neck: No cervical lymphadenopathy, trachea midline, supple Mouth: no lip lesion, mucus membranes moist Cardiovascular: S1S2 reg, no murmur, positive dorsalis pedis pulse bilateral, no edema Lungs: CTA bilateral, no rhonchi, no rales, no accessory muscle use Abdominal: soft, nontender to palpation, no guarding Ext: muscle strength 5 out of 5 in all 4 extremities grossly, no gross muscle atrophy, no contractures, Neuro: CN II-XI grossly intact, no gross focal neuro deficits Psych: Alert, oriented, appropriate affect Data reviewed today: Labs: Sodium 139, potassium 3.6, chloride 104, bicarb 29, BUN 20, creatinine 1.3, glucose 93, calcium 8.4 Images: No new imaging Assessment and Plan: 43-year-old female status post section 6 days ago presents with shortness of breath for 2 nights. Patient reports exertional dyspnea and orthopnea. No reported history of blood clot, congestive heart failure or other cardiac disease. Chest x-ray is remarkable for pulmonary vascular congestion. Medicine is consulted for further workup. Patient developed mild prerenal ANGELINA secondary to diuretic use. Patient to follow-up with PCP post-discharge within 1 to 2 days for BMP. Patient can be discharged from medicine standpoint. #Acute hypoxic respiratory failure secondary to congestive heart failure exacerbation (resolved) #NSTEMI, likely type II Troponin is trending down from 0.165->0.081-> 0.086 Patient is euvolemic Discontinue furosemide 40 mg IV q12 hr Heart healthy diet, fluid restriction 2 L daily Strict I's and O's Daily weight checks Monitor on telemetry Continue monitoring CBC, CMP elevated D dimer, suspected due to her recent surgery C section, PE could not completely ruled out, but currently her hypoxemia and SOB is suspected to be due to pulmonary vascular congestion . Bilateral lower extremity Dopplers negative if after diuresis , she continues to be SOB, then consider CT angio of the chest to check for PE. Respiratory viral panel negative for covid , RSV and Influenza supplemental oxygen as needed Cardiology following Continue aspirin 81 mg daily # Mild non Oliguric prerenal ANGELINA, secondary to diuretic use BUN 6, creatinine 1.3 Furosemide has been discontinued Avoid NSAIDs and nephrotoxins Outpatient follow-up for BMP in 2 to 3 days, PCP appointment set up, instructions provided to the patient #Hypertension BP improving On labetalol 100 twice daily, losartan 160 daily #Subacute Anemia possibly related to her recent C section and post continue to monitor transfuse for Hgb <7 patient denies any overt bleeding at this time #Sinus infection Zithromax 250 mg p.o. daily x 5 days DVT ppx: Lovenox 40 mg subcu daily Patient is medically optimized for discharge from internal medicine standpoint. Thank you for allowing us to participate in the care of this pleasant patient. Do not hesitate to contact us with questions. Someone can be reached from the [facility] [place] hospitalist group all hours of the day at [phone] or via [employer]. I have seen and evaluated the patient today. Discussed with the resident and agree with the residents finding and plan as documented in the resident's note. Changes highlighted in blue font. Objective - Vital Signs Vital signs: Vital Signs Temp 97.7 F 11/15/23 04:00 Pulse 56 L 11/15/23 04:00 Resp 16 11/15/23 04:00 BP 159/80 11/15/23 04:00 Pulse Ox 97 11/15/23 04:00 FiO2 Intake & Output 11/14/23 11/14/23 11/15/23 06:59 18:59 06:59 Output Total 1450 3250 1300 Balance -1450 -3250 -1300 Weight 110.8 kg 105.4 kg Output: Urine 1450 3250 1300 Other: Voiding Method Toilet Toilet Toilet # Voids 2 - Labs CBC & Chem 7: 11/14/23 11:00 11/15/23 07:22 Labs: Abnormal Lab Results - Last 24 Hours (Table) 11/14/23 11/14/23 11/14/23 Range/Units 11:00 11:00 11:00 RBC 3.38 L (3.80-5.40) m/uL Hgb 9.6 L (11.4-16.0) gm/dL Hct 28.8 L (34.0-46.0) % Creatinine 1.06 H (0.52-1.04) mg/dL Troponin I 0.081 H* (0.000-0.034) ng/mL 11/14/23 Range/Units 14:15 RBC (3.80-5.40) m/uL Hgb (11.4-16.0) gm/dL Hct (34.0-46.0) % Creatinine (0.52-1.04) mg/dL Troponin I 0.086 H* (0.000-0.034) ng/mL
--- NOTE | 2023-11-15 12:43 | P.PN ---
Subjective HISTORY OF PRESENT ILLNESS: This is a 43-year-old female with no significant past medical history. 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 We have been asked to see the patient in consultation for elevated troponins. Patient examined at the bedside. Patient presented to the hospital with a chief complaint of shortness of breath. Patient underwent on 11/07/2023. Patient states during her she had elevated blood pressure but it was not high enough to diagnose preeclampsia and she did not require antihypertensive medications at that time. Patient states she has been feeling short of breath for the past 2 to 3 days. She does report having a frequent cough as well. She states yesterday she developed chest discomfort which she believes was due to frequent coughing. The patient was started on IV Lasix which she states has helped her breathing. DIAGNOSTICS: - EKG reveals sinus mechanism with no signs of acute ischemia - Chest xray prominent pulmonary vascular markings and diffuse increased lung markings. Correlate for pulm edema. Minimal left pleural effusion. - Laboratory data: WBC 6.5. Hemoglobin 9.6. Platelet count 261. Sodium 138. Potassium 3.7. BUN 14. Creatinine 1.06. Troponin 0.165. 0.081. proBNP 1940. - Current home cardiac medications include none - Echocardiogram obtained this admission reveals ejection fraction 50 to 55% with possible inferior basal hypokinesis, mild pulmonary hypertension, mild mitral regurgitation, mild tricuspid regurgitation 11/15/2023 Patient examined this morning the bedside. Patient currently denies any chest pain or pressure. She denies shortness of breath. Blood pressure remains elevated this morning with a blood pressure in the 160s. Patient states that she is not breast-feeding. Patient also underwent intraoperative bilateral salpingectomy during . PHYSICAL EXAM: VITAL SIGNS: Reviewed. GENERAL: Well-developed in no acute distress. HEENT: Head is normocephalic. Pupils are equal, round. Sclerae anicteric. Mucous membranes of the mouth are moist. Neck supple. No JVD or thyromegaly LUNGS: Respirations even and unlabored. Lungs essentially clear to auscultation bilaterally. HEART: Regular rate and rhythm. S1 and S2 heard. ABDOMEN: Soft. Nondistended. Nontender. EXTREMITIES: Normal range of motion. No clubbing or cyanosis. Peripheral pulses intact. No lower extremity edema NEUROLOGIC: Awake and alert. Oriented x 3. ASSESSMENT: Shortness of breath Acute pulmonary edema Elevated troponins, likely type II CT secondary to oxygen supply/demand mismatch Hypertension Status post , November 07, 2023 History of hypertension during , not elevated enough to require medications, per patient PLAN: Discontinue hydralazine Continue labetalol 100 mg twice a day Add valsartan 160 mg daily Patient may be discharged home today from a cardiac standpoint She is to follow-up in the office with Dr. Salas in 2 weeks Nurse practitioner note has been reviewed by physician. Signing provider agrees with the documented findings, assessment, and plan of care documented by [employer] as a scribe. Objective - Vital Signs Vital signs: Vital Signs Temp 96.8 F L 11/15/23 08:00 Pulse 57 L 11/15/23 08:00 Resp 20 11/15/23 08:45 BP 164/88 11/15/23 08:00 Pulse Ox 96 11/15/23 08:00 FiO2 Intake & Output 11/14/23 11/15/23 11/15/23 18:59 06:59 18:59 Intake Total 236 Output Total 3250 1300 Balance -3250 -1300 236 Weight 105.4 kg Intake: Oral 236 Output: Urine 3250 1300 Other: Voiding Method Toilet Toilet Toilet - Labs CBC & Chem 7: 11/14/23 11:00 11/15/23 07:22 Labs: Abnormal Lab Results - Last 24 Hours (Table) 11/14/23 11/15/23 Range/Units 14:15 07:22 BUN 20 H (7-17) mg/dL Creatinine 1.30 H (0.52-1.04) mg/dL Troponin I 0.086 H* (0.000-0.034) ng/mL
[2023-11-15] MEDS: VALSARTAN 160 MG TAB PO SCH (13:33)
[2023-11-15 14:42] VITALS: BP 135/82
[2023-11-15 14:44] VITALS: PULSE 57
[2023-11-15 14:45] VITALS: TEMP 98.3
[2023-11-15 15:00] VITALS: RESP 20
== END 2023-11-15 15:07 | disposition home or self-care (01) ==
LOC: FBPOP 16:56 → 4FBP 17:57 → 3SCARD 20:31
PROVIDERS: ADMIT Obstetrics & Gynecology Obstetrics; ATTEND Obstetrics & Gynecology Obstetrics
DX: J96.01 Acute respiratory failure with hypoxia (principal); J81.1 Chronic pulmonary edema; I21.4 Non-ST elevation (NSTEMI) myocardial infarction; I10 Essential (primary) hypertension; D64.9 Anemia, unspecified; J32.9 Chronic sinusitis, unspecified; N17.9 Acute kidney failure, unspecified; T50.2X5A Adverse effect of carbonic-anhydrase inhibitors, benzothiadiazides and other diuretics, initial encounter; Z98.891 History of uterine scar from previous surgery; Z79.82 Long term (current) use of aspirin; Z79.899 Other long term (current) drug therapy
CPT/HCPCS: 71046; 80048; 80053; 83735; 83880; 84484; 85025; 87636; 93306; 93970; 96372; 96374; 96376; 99215